=== PATIENT | male | born 1955 | race Caucasian/White ===

== ENCOUNTER → 2021-03-15 14:53 | Outpatient (CLI) | payer MEDICARE, SELFPAY ==
--- NOTE | 2021-03-15 | PET_ITS ---
EXAMINATION: FDG PET-CT INDICATIONS: A 66-year-old male with reported history of colorectal carcinoma presenting for initial staging examination. COMPARISON EXAMINATION: CT of the chest report dated 11/24/20 TECHNIQUE: Following the intravenous administration of 13.075 mCi of F-18 deoxyglucose via the left antecubital fossa, multiplanar image acquisitions of the neck, chest, abdomen and pelvis to level of mid thigh, obtained at one hour post radiopharmaceutical administration contemporaneously interpreted with the current CT of the neck, chest, abdomen and pelvis, to level of mid thigh, dated 03/15/[address] of the chest report dated 11/24/20 reveals: BLOOD GLUCOSE LEVEL:?? 93 mg/dl?HEIGHT:?69 inches?WEIGHT: 194 lbs. FINDINGS: 1. There is no quantitative scintigraphic evidence of abnormal increased glucose metabolism on meticulous inspection of whole body acquisitions to include all three axis reconstructions. 2. Normal physiologic distribution of the radiopharmaceutical is apparent in the hepatic and splenic parenchyma, both renal units, bladder and visualized intestinal tract. The visualized portion of the cerebral cortex, as well as cerebellar hemispheres demonstrate symmetric and preserved glucose metabolism. Diffuse radiopharmaceutical concentration is noted in all four quadrants of the abdomen and pelvis. Prominent radiopharmaceutical concentration is observed in the left ventricular myocardium commensurate with the [place]. Pertinent CT findings are as follows: CHEST: There is atherosclerotic calcification defined in the thoracic aorta without evidence of dilatation-aneurysm formation. Coronary arterial calcification is observed. A hiatal hernia is defined. Right and left axillary soft tissue densities with fatty hilus are non-glucose avid. Mediastinal soft tissue reveals no evidence of increased tracer uptake. There are no parenchymal densities-nodules defined in the right and left hemithorax with discernible increased quantitatively significant enhanced FDG uptake. ABDOMEN AND PELVIS: Postsurgical change is defined in the right anterior-paramedian abdominal mesentery without evidence of quantitatively significant increased FDG uptake. There is atherosclerotic calcification defined in the abdominal aorta without evidence of dilatation-aneurysm formation. Abdominal-pelvic arterial calcification is demonstrated. Calcification is manifest within the left kidney. Right and left inguinal soft tissue densities are non-glucose avid. SKELETAL: Degenerative changes are noted in the cervical, thoracic and lumbar spine without evidence of increased radiopharmaceutical concentration. PET/PET/CT Tumor Base -Thigh Init IMPRESSION: 1. NEGATIVE EXAMINATION. There is no definitive quantitative scintigraphic evidence of residual-metastatic/viable neoplasm. Electronic Signature Oswald Yost D.O. Accurate Quantification of SUVs for this report are calculated using the exclusive [employer], ([place].S. Patent No. 10, [id number] 983). Standardization and correction of the FDG SUV metric exclusively available with [employer] intellectual property, allow for vendor non-specific objective quantitative sequential FDG PET-CT comparison and otherwise unobtainable optimization of the sensitivity and specificity of the examination. Electronically Signed: Oswald Yost DO at 17:22 EDT Tel , Service support ,
== END ==
PROVIDERS: PCP Family Medicine; Referring Provider Internal Medicine Hematology & Oncology; Visit Provider Internal Medicine Hematology & Oncology
DX: C18.2 Malignant neoplasm of ascending colon (principal)
CPT/HCPCS: 78815; A9552

== ENCOUNTER → 2023-05-25 | Outpatient (CLI) | payer MEDICARE, SELFPAY ==
--- NOTE | 2023-05-25 | FLU_PTH ---
PATIENT: FARIHA PARIS LOC: [facility] U#:[id number] AGE/SX: 68/M ROOM: RE05/25/[address]: Dr. Devonte Graham MD : 1955 BED: DIS: 05/25/2023 SPEC #: [id number] RECD: 05/28/23 07:08 STATUS: BJ REQ #: [id number] SHANI: 05/25/23 00:[address]: Hanna Graham DEPT: CYTOLOGY RECD BY: Luz Mancini ENTERED: 05/28/23 07:08 SP TYPE: Fluid OTHR DR: Dr. Geovanni Bloom MD Tissues: A - Thyroid gland, NOS B - Thyroid gland, NOS Procedures: Special Stain Group II Surgery Specimen Level IV Cytospin Fluid Comments: @ Ordering doctor for SSII edited from to @ by YUE at 05/28/23 1016 @ Ordering doctor for SUIV edited from to DR.LWANG Galeas by YUE at 05/28/23 1016 @ Ordering doctor for CYSPIN edited from to DR.LWANG Galeas by YUE at 05/28/23 1016 @ Submitting doctor edited from to DR.LWANG Galeas by YUE at 05/28/23 1016 HEADER OPERATION: Fine needle aspiration left lower thyroid PRE-OP DIAGNOSIS: Abnormal thyroid ultrasound TISSUE SUBMITTED: A - Left lower thyroid fluid, B - Left lower thyroid x6 slides DIAGNOSIS CYTOLOGY A. Fine needle aspiration, left lower thyroid nodule (cytospin and cell block): Macrophages consistent with benign cyst contents. B. Fine needle aspiration, left lower thyroid nodule (smears): Rare follicular cells and macrophages. See comment. AM:angel luis 05/29/2023 COMMENT B. A benign follicular nodule is suspected, however, paucity of follicular cells precludes further evaluation. Clinical correlation is suggested. CYTOLOGY STUDY Slides are reviewed. CYTOLOGY GROSS A - Received is 30 ml of reddish cloudy fluid labeled with the patient's name and and designated per the requisition as left lower thyroid. Submitted for cytology preparation including cell block. B - Received are six smears labeled with the patient's name and designated per the requisition as left lower thyroid. Submitted for staining. / angel luis 05/28/2023 TC:5 CPT: 30527 x2, 40974
== END | disposition home or self-care (01) ==
LOC: LABSPEC 16:54
PROVIDERS: PCP Family Medicine; Visit Provider Radiology Radiation Oncology
DX: E04.1 Nontoxic single thyroid nodule (principal)
CPT/HCPCS: 88108; 88305; 88313

== ENCOUNTER → 2023-06-07 | Outpatient (CLI) | payer MEDICARE, SELFPAY ==
--- NOTE | 2023-06-07 13:46 | MRI_ITS ---
EXAMINATION: MR Pelvis Male WO/W Contrast COMPARISON: None CLINICAL HISTORY: 68-year-old man with elevated PSA level Most recent PSA = 6.7 ng/ml; PSA date = 04/30/2023 TECHNIQUE: Standard prostate MR protocol was used before and after administration of 17 cc of IV Clariscan. FINDINGS: Prostate volume: 60 cc PSA density: 0.11 ng/ml2 Length of membranous urethra: 13 mm Post-biopsy hemorrhage: None Multiparametric MR evaluation: Heterogeneous appearance of the central gland is consistent with benign prostatic hyperplasia. Lesion 1: LOCATION - 1 x 0.8 x 1.5 cm moderately T2 hypointense round focal lesion in the right posterior/posterolateral peripheral zone at mid gland. It is very bright on DWI and very dark on ADC map. T2 - 5 DWI - 5 DCE - positive Overall PI-RADS v2 score = 5 Lesion 2: LOCATION - 1.8 x 1.6 x 1.6 cm ill-defined T2 hypointense lesion in the left posterior transitional zone at mid gland. It is mild to moderately bright on DWI and moderately dark on ADC map. T2 - 3 DWI - 3 DCE - inconclusive Overall PI-RADS v2 score = 3 Capsular margin and neurovascular bundle: There is 3 mm of extracapsular extension by lesion 1 posterior laterally to the right. Seminal vesicles: Not involved. Lymph nodes: No lymphadenopathy in the field of view. Bones: No suspicious lesions in the field of view. MRI/Pelvis W/WO Contrast IMPRESSION: 1.5 cm PI-RADS 5 lesion in the right posterolateral PZ at mid gland with 3 mm extracapsular extension posterolaterally to the right. - No evidence of seminal vesicle invasion. - No lymphadenopathy. - No suspicious bone lesions. 1.8 cm PI-RADS 3 lesion in the left posterior TZ at mid gland. - No extracapsular extension - No evidence of seminal vesicle invasion. Benign prostatic hyperplasia. Electronically Signed: Brain Centeno MD at 20:41 EST ,
== END | disposition home or self-care (01) ==
LOC: MRI 13:05
PROVIDERS: PCP Nurse Practitioner Family; Referring Provider Urology; Visit Provider Urology
DX: R97.20 Elevated prostate specific antigen [PSA] (principal)
CPT/HCPCS: 72197; A9575

== ENCOUNTER → 2023-07-30 | Outpatient (CLI) | payer MEDICARE, SELFPAY ==
--- NOTE | 2023-07-30 | IMM_PTH ---
PATHOLOGY RESULTS PATIENT: FARIHA PARIS LOC: [facility] U#:[id number] AGE/SX: 68/M ROOM: RE07/30/[address]: Dr. Haja Huber MD : 1955 BED: DIS: 07/30/2023 SPEC #: [id number] RECD: 08/01/23 14:42 STATUS: BJ REQ #: [id number] SHANI: 07/30/23 00:[address]: Haja Huber DEPT: IMMUNOHISTOCHEMISTRY RECD BY: Marj Pearl ENTERED: 08/01/23 14:43 SP TYPE: IMMUNO OTHR DR: Nakia Argueta, [employer]-C Tissues: PROSTATE RIGHT PROSTATE RIGHT PROSTATE LEFT PROSTATE LEFT PROSTATE LEFT Procedures: 34BE12 (add) P40 (add) 34BE12 (initial) PHYSICIAN & INSTITUTION [place] [id number] SPECIMEN INFORMATION: Tissue Source: A - Right apex, B - Right mid, D - Left apex, E - Left mid, F - Left base Clinical Info: Elevated PSA Specimen Number: [id number] A, B, D-F CPT code: 46559, 71666 x9 METHODOLOGY: Deparaffinized sections of prefer/formalin-fixed tissue or PAP/DQ stained slides are incubated with monoclonal/polyclonal antibodies/oligonucleotide probes. Localization is made via biotin free immunoperoxidase method. Appropriate controls are performed and reacted as expected. Results on target cell population are indicated in the following table: RESULTS: ANTIBODY / CLONE RESULT Block A P40 (BC28) negative 34BE12 (34BE12) negative Block B P40 (BC28) negative 34BE12 (34BE12) negative Block D P40 (BC28) negative 34BE12 (34BE12) negative Block E P40 (BC28) negative 34BE12 (34BE12) negative Block F P40 (BC28) negative 34BE12 (34BE12) negative These tests were developed and their performance characteristics determined by [facility]. They may not have been cleared or approved by the U.S. Food and Drug Administration. The FDA has determined that such clearance or approval is not necessary. The above immunohistochemical/dualISH markers are ordered and reviewed by the Pathologist. INTERPRETATION: A. Right prostate, apex, core biopsy: Atypical small acinar proliferation (RAJ). B. Right prostate, mid, core biopsy: Adenocarcinoma. D. Left prostate, apex, core biopsy: Atypical small acinar proliferation (RAJ). E. Left prostate, mid, core biopsy: Adenocarcinoma. F. Left prostate, base, core biopsy: Adenocarcinoma. SJ:angel luis 08/02/2023
--- NOTE | 2023-07-30 08:00 | PROSBIL_PTH ---
PATHOLOGY RESULTS PATIENT: FARIHA PARIS LOC: [facility] U#:[id number] AGE/SX: 68/M ROOM: RE07/30/[address]: Dr. Haja Huber MD : 1955 BED: DIS: 07/30/2023 SPEC #: [id number] RECD: 07/31/23 11:38 STATUS: BJ REPrashant #: [id number] SHANI: 07/30/23 08:[address]: Haja Huber DEPT: SURGICAL PATHOLOGY RECD BY: Diandra Novoa ENTERED: 07/31/23 11:38 SP TYPE: PROST BX LE DR: Nakia Argueta, TELLY Tissues: PROSTATE RIGHT PROSTATE RIGHT PROSTATE RIGHT PROSTATE LEFT PROSTATE LEFT PROSTATE LEFT Procedures: PROSTATE BX HEADER OPERATION: Prostate biopsy PRE-OP DIAGNOSIS: Elevated PSA TISSUE SUBMITTED: A - Right apex, B - Right mid, C - Right base, D - Left apex, E - Left mid, F - Left base MICROSCOPIC DIAGNOSIS A. Right prostate, apex, core biopsy: Focal atypical small acinar proliferation (RAJ). Focal mild chronic inflammation. See comment. B. Right prostate, mid, core biopsy: Prostatic adenocarcinoma. Sonya grade: 3+3=6 Number of cores involved: 1/2 Proportion of tissue involved: ~5% Perineural invasion: Present. Greatest tumor length: 0.2 cm See comment. C. Right prostate, base, core biopsy: Prostatic adenocarcinoma. [place] grade: 3+4=7 Number of cores involved: 2/2 Proportion of tissue involved: >95% Perineural invasion: Present. Greatest tumor length: 1.2 cm D. Left prostate, apex, core biopsy: Focal atypical small acinar proliferation (RAJ). Focal mild chronic inflammation. See comment. E. Left prostate, mid, core biopsy: Prostatic adenocarcinoma. Sonya grade: 3+3=6 Number of cores involved: 1/2 Proportion of tissue involved: ~20% Perineural invasion: Not identified. Greatest tumor length: 0.5 cm Focal high-grade prostatic intraepithelial neoplasia (HGPIN). See comment. F. Left prostate, base, core biopsy: Prostatic adenocarcinoma. Sonya grade: 3+3=6 Number of cores involved: 1/2 Proportion of tissue involved: ~10% Perineural invasion: Not identified. Greatest tumor length: 0.7 cm, discontinuous See comment. SJ:angel luis 08/01/2023 COMMENT A, B, D-F - Immunohistochemistry ([id number]) supports the above diagnosis. Case has been reviewed in consultation with Dr. Can who concurs with the above diagnosis. IDC:AM MICROSCOPIC DESCRIPTION Slides are reviewed. GROSS DESCRIPTION A - Received is one container designated prostate, right apex. The specimen consists of two elongated fragments of light rob[place]o-white soft tissue each measuring 1.0 cm in length and 0.1 cm in diameter. The specimen is totally submitted in one cassette. B - Received is one container designated prostate, right mid. The specimen consists of two elongated fragments of light rob[place]-white soft tissue each measuring 1.2 cm in length and 0.1 cm in diameter. The specimen is totally submitted in one cassette. C - Received is one container designated prostate, right base. The specimen consists of two elongated fragments of light rob[place]o-white soft tissue each measuring 1.2 cm in length and 0.1 cm in diameter. The specimen is totally submitted in one cassette. D - Received is one container designated prostate, left apex. The specimen consists of two elongated fragments of light rob[place]o-white soft tissue measuring 0.6 and 1.5 cm in length and 0.1 cm in diameter. The specimen is totally submitted in one cassette. E - Received is one container designated prostate, left mid. The specimen consists of two elongated fragments of light rob[place]o-white soft tissue measuring 1.5 and 1.9 cm in length and 0.1 cm in diameter. The specimen is totally submitted in one cassette. F - Received is one container designated prostate, left base. The specimen consists of two elongated fragments of light rob[place]o-white soft tissue each measuring 1.7 cm in length and 0.1 cm in diameter. The specimen is totally submitted in one cassette. / MARLA:rg 07/31/2023 TC:0 CPT: G0146
--- OUTSIDE RECORDS SUMMARY | 2023-07-30 17:24 | XMS RPT_ITS | CCD ---
Author Name Unknown Address [id number] [place] [address] Organization [facility] Care Team Providers Care Piano Assembler Name Role Phone Jovanny Terry Primary Care Provider MARA LINN, DAMIEN ARIAS Primary Care Physician [phone] Jovanny Terry MD Primary Care Provider Jovanny Terry MD Primary Care Provider MISTI BERMAN MD Admitting UnavailMISTI Briceno MD Primary Care UnavailMISTI Briceno MD Attending UnavailCOURTNEY Marx SKEIN INSPECTOR Consulting Unavailable PROVIDER, UNKNOWN Consulting Unavailable PROVIDER, UNKNOWN Consulting Unavailable COURTNEY TERRY NP Consulting Unavailable JOSE GREGORY SKEIN INSPECTOR-C Admitting Unavailable JOSE GREGORY SKEIN INSPECTOR-C Primary Care Unavailable JOSE GREGORY SKEIN INSPECTORAdán Attending Unavailable PROVIDER, UNKNOWN Consulting Unavailable PROVIDER, UNKNOWN Consulting Unavailable SAMMI MANCIA MD Admitting Unavailable SAMMI MANCIA MD Primary Care Unavailable SAMMI MANCIA MD Attending Unavailable DAMIEN TERRY MD Consulting Unavailable DAMIEN TERRY MD Referring Unavailable PROVIDER, UNKNOWN Consulting Unavailable PROVIDER, UNKNOWN Consulting Unavailable PROVIDER, UNKNOWN Consulting Unavailable MUSTAPHA ENRIQUEZ Attending Unavailable DAMIEN TERRY MD Consulting Unavailable DAMIEN TERRY MD Referring Unavailable MUSTAPHA ENRIQUEZ Admitting Unavailable MUSTAPHA ENRIQUEZ Primary Care Unavailable PROVIDER, UNKNOWN Consulting Unavailable PROVIDER, UNKNOWN Consulting Unavailable PROVIDER, UNKNOWN Consulting Unavailable ALBERTO TERRY Admitting Unavailable ALBERTO TERRY Primary Care Unavailable ALBERTO TERRY Attending Unavailable DAMIEN TERRY MD Consulting Unavailable PROVIDER, UNKNOWN Consulting Unavailable PROVIDER, UNKNOWN Consulting Unavailable PROVIDER, UNKNOWN Consulting Unavailable Alberto Terry Unavailable Haja Huber MD Unavailable Misti Berman Unavailable Nacho Palmer Unavailable Alberto Terry Unavailable Haja Huber MD Unavailable Misti Berman MD Unavailable Nacho Palmer MD Unavailable Haresh PARADA, Nakia [facility] Primary Care Pr ovider MARA, JOVANNY QUEZADA Primary Care Unavailable MASCI, SRINATH Hinton Attending Unavailable MASCI, SRINATH A Referring Unavailable TERRY, [facility] Primary Care Unavailable MASCI, SRINATH A Referring Unavailable TERRY, [facility] Primary Care Unavailable MASCI, SRINATH A Referring Unavailable MASCI, SRINATH A Referring Unavailable TERRY, [facility] Primary Care Unavailable MASCI, SRINATH A Referring Unavailable TERRY, [facility] Primary Care Unavailable MASCI, SRINATH A Referring Unavailable TERRY, [facility] Primary Care Unavailable MASCI, SRINATH Hinton Attending Unavailable KIM POND Referring Unavailable TERRY, [facility] Primary Care Unavailable MASCI, SRINATH A Referring Unavailable TERRY, [facility] Primary Care Unavailable TERRY, [facility] Primary Care Unavailable LULAMY FARMERALI Attending Unavailable TERRY, [facility] Primary Care Unavailable LULAMY FARMERALI Referring Unavailable [facility] Care Berenice vailable HANNA GRAHAM Attending Unavailable STACEYTETTLARISSA [facility] Care Berenice vailable HANNA GRAHAM Attending Unavailable MASCI, SRINATH A Referring Unavailable KENNETHTETTER [facility] Care Berenice vailable HANNA GRAHAM Attending Unavailable STACEYFSTETTER EXTRUSION MANAGER-COMMERCIAL LENDING ASSISTANT, [facility] Care Physic faheem MARA [employer] GE[employer]-BC, COURTNEY R Unavailable HEARINC, . Unavailable NEUROLOGY, GENERAL Unavailable Unavailable Haja Huber Unavailable Unavailable PHYSICAL THERAPY, CONSULT Unavailable Unavazaida RENE MD, LESLI Fonseca Unavailable CONSTANZA HARDING Unavailable ROSALIA MALDONADO Unavailable Unavailable ALBERTO TERRY MD Unavailable FADY LINN, MARIO Hatch Unavailable JUDITH LINN, Reji VALDES Unavailable MARA LINN, Mona QUEZADA Unavailable Yaneth FUCHS, Zulma Unavailable Unavailable Deandra Jansen Unavailable Unavailable Angelica RN, Adri Unavailable Unavailmoses Mena RN, Venessa Unavailable Unavailable JACQUE TERRY Unavailable Unavailable LOCO RN, KAITLIN Unavailable Unavailable VICTORINO PERRY Unavailable Unavailable Mary Terry Unavailable Unavailable HARESH GOODMANP-C, NAKIA Bond Unavailable SALLY CORREA Unavailable Unavailable [place] Courtney LEVY Unavailable Unavailable Unavailable Unavailable BRI BLANCHARD-COMMERCIAL LENDING ASSISTANT, JOSE Attending Unavail able MARA LINN, Mona [facility] Primary Care Unavailable HARESH LOYD, NAKIA Attending Berenice mehran TERRY MD, [facility] Primary Care Unavailable CASSY LINN, BASHIR Hinton Attending Unavailable MARA LINN, [facility] Primary Care Unavailable ANUPAM LINN, ROSALIA Consulting Unavailable CASSY LINN, BASHIR Hinton Admitting Unavailable ANJU LINN, DR BALLESTEROS Attending Unavailchele HUTSON APRN-TAL, NAKIA Primary Care Berenice mehran GOODMANP-BC, COURTNEY Mendoza Attending Unavailchele e MARA [facility], COURTNEY Mendoza Primary Care Unavailabl e MARA GRINDER GEAR-, COURTNEY Mendoza Attending Unavailabl e MARA GR[employer]ER GEAR-BC, COURTNEY Mendoza Primary Care Unavailabl e Medications Current Medications Medication Drug Class(es) Dates Sig (Normalized) Sig (Original) aspirin 81 mg delayed release oral tablet (19 sources) Platelet Aggregation Inhibitor, Nonsteroidal Anti-inflammatory Drug Start: 12-23-2021 aspirin 81 mg oral delayed release tablet Dose : 81 mg = 1 tab(s), Oral, qAM, 0 Refill(s) Start Date: 12/23/21 Status: Ordered Completed/Discontinued Medications Medication Drug Class(es) Dates Sig (Normalized) Sig (Original) acetaminophen 500 mg / HYDROcodone bitartrate 5 mg oral tablet (5 sources) Opioid Agonist Start: 10-31-2011 End: 11-07-2011 take 1 tablet by mouth every six hours as needed VICODIN, 5-500MG (Oral Tablet) ; 1 (one) Tablet every six hours, as needed for 7 days Quantity: 28 {Tablet} Refills: 0 Ordered: 11-Nov-2011 MD Mona TERRY Start: 31-Oct-2011 End: 07-Nov-2011 Status: Inactive Comments: Medication taken as needed. Problems Active Problems Problem Classification Problem Date Documented Da te Episodic/Chronic Abdominal pain (20 sources) Right upper quadrant pain; Translations: [Right upper quadrant pain] 10-13-2020 Episodic Acute cerebrovascular disease (20 sources) Cerebral infarction, unspecified; Translations: [Cerebrovascular accident] Onset: 11-21-2021 12-26-2021 Chronic Past or Other Problems Problem Classification Problem Date Documented Date Episodic/Chronic Acute cerebrovascular disease (5 sources) Acute cerebrovascular disease 12-07-2021 Coronary atherosclerosis and other heart disease (5 sources) Coronary atherosclerosis and other heart disease 09-06-2022 Headache; including migraine (20 sources) Headache; including migraine 07-11-2023 Lymphadenitis (20 sources) Mediastinal lymphadenopathy; Translations: [Localized enlarged lymph nodes] Onset: 02-14-2021 02-25-2021 Episodic Other lower respiratory disease (20 sources) Multiple nodules of lung; Translations: [Other nonspecific abnormal finding of lung field] Onset: 02-14-2021 02-14-2021 Episodic Other lower respiratory disease (1 source) Other nonspecific abnormal finding of lung field; Translations: [Lung nodules] Onset: 02-14-2021 Episodic Residual codes; unclassified (20 sources) Tobacco user; Translations: [Tobacco use] Onset: 02-14-2021 02-14-2021 Episodic Unclassified (5 sources) [ADDITIONAL REASON] Knee pain - The knee pain involves the left knee. The knee pain is described as being located in the medial knee. Note for Knee pain : Has seen Dr. Carlos Terry in the past. Had cortisone and gel injections didn't help any. Constant pain, sore 07-11-2023 Unclassified (5 sources) [ADDITIONAL REASON] Prostate Biopsy - Will be done 07/30/2023 07-11-2023 Unclassified (5 sources) !Patient notification of lab results - Courtney Terry [facility]. The test(s) that you had done were/was a Borrelia burgdorferi antibody. Note for !Patient notification of lab results : Your test was negative for past or present infection of Lyme Disease. Let us know if you have any questions. 01-18-2023 Unclassified (5 sources) Fatigue - Symptoms include fatigue, impaired memory, impaired concentration (brain fog) and myalgias (thought it was from medication for cholesterol but still had it. All joints and muscles), while symptoms do not include poor sleep. Onset was 1 year(s) ago. Associated symptoms do not include headache, fever, sore throat, cough, irregular heartbeat, nausea or vomiting. Note for Fatigue : Patient still thinks it's associated with all the meds he's on 01-16-2023 Unclassified (5 sources) !Patient notification of lab results - Courtney Terry GR[employer]ER GEAR-BC. The test(s) that you had done were/was an A1C (three month sugar average). The results of your testing were stable for your medical condition . Note for !Patient notification of lab results : Your blood sugars are not in the diabetes range, so keep up the good work. Eating a diet that is high in fruits and vegetables and low added sugar is recommended, along with getting at least 30 minutes of exercise at least 5 days a week. Let us know if you have any questions. 01-04-2023 Unclassified (5 sources) Foot Problem - Note for Foot problem : Pt. reports right foot, base of toes lightly discolored blue/purple, foot with mild redness. Warm to touch, slight tenderness to touch. No known injury. Pt. did state noted some tingling in this foot approx 1 month ago. 01-22-2023 Unclassified (5 sources) !Patient notification of lab results - Courtney Terry GR[employer]ER GEAR-BC. Note for !Patient notification of lab results : Omega Mckeon, We got your lab results back and overall they looked pretty good! Your cholesterol is slightly higher now than it was the last time we checked, so as we discussed, you may want to consider restarting that cholesterol medication. We did check a myoglobin level, which was normal, which typically would be high if it really was the statin medication causing your pain. Your one liver enzyme (Alk Phos) is high, and has been the last several times we checked, so I would like for you to come in and have one more lab drawn to make sure it is nothing worrisome. Also, we have been following your PSA (prostate specific antigen) the past few years as well, and it is up some from last check (6.52 from 4.25). Typically it is recommended to see a urologist for evaluation at this point, so let us know if you'd like to get that started. Let us know if you have any questions. 09-07-2022 Unclassified (1 source) [ADDITIONAL REASON] HYPERTENSION - There has been no associated chest pain or dyspnea. Note for HYPERTENSION : C/O tinnitus, concerned that may be d/t chronically elevated BP. Systolic usually 150's at home. 09-06-2022 Unclassified (5 sources) !Patient notification of lab results - Dr. Terry. Note for !Patient notification of lab results : Mike, your labs looked good. Your cholesterol was super. Your PSA was slightly elevated again, but not as high as it was several years ago. I am confident that it is not due to a cancer. Even so, we should recheck it in about 6 months to make sure it isn't going higher.We will send a copy of your labs to Dr. Cohn.Let us know if you have any questions. 06-01-2022 Unclassified (4 sources) LAB DRAW - Note for LAB DRAW : Pt would like cholesterol checked. 05-31-2022 Unclassified (4 sources) [ADDITIONAL REASON] adenocarinoma of cecum - Pt would like to discuss this and would like a refill of protonix. Medication is helping immensely. 05-31-2022 Unclassified (2 sources) Smoking Cessation - Note for Smoking cessation : Tried to stop smoking cold turkey. Lasted for 2 days. Now a pack lasts 2-3 days rather than just 1 day. Pt concerned w/ GI side effects of nicotine. 01-18-2022 Unclassified (2 sources) [ADDITIONAL REASON] HYPERTENSION - Note for HYPERTENSION : Amlodipine stopped when pt had CVA 10/202101-18-2022 Unclassified (5 sources) Pre-Op Visit - The procedure scheduled is a Right Hemicolectomy on 12/02/2020. The surgeon for the procedure will be Dr. Alberto Terry. Note for Pre-op visit : See form 11-25-2020 Unclassified (5 sources) !Patient notification of lab results - Dr. Terry. Note for !Patient notification of lab results : Mike, your labs looked good. 1. Your white blood cell count was still a little elevated, but improved since when you were sick. So since it is improving, it is likely not anything bad going on - maybe from your stomach issues, maybe from your skin graft, etc. Even so, we will recheck it in 6 months to make sure all is well.2. Your thyroid was a bit off in the past, now back to normal. It is not unusual for that to fluctuate, so no worries.3. Your PSA has continued to drop, now completely normal. PSAs continue to increase if you have prostate cancer so, again, no worries there. At this point I would recommend we just go back to routine yearly screening like we do for everyone else.4. You did have very mild anemia, which is new for you. The first thing we check for on that is to make sure you don't have a polyp or anything else in your colon that could be causing blood loss. You are in already in process for getting that done, so let's just stick with that plan.So lots of stuff going on, but overall things look good.Let us know if you have any questions. 10-14-2020 Unclassified (5 sources) Abdominal pain - The abdominal pain has been occurring in an intermittent pattern for 2 months. The abdominal pain is described as sharp pain. The abdominal pain is described as being located in the right upper quadrant. The symptoms are aggravated by meals (1/2 to 1 hour after eating). The symptoms have been associated with abdominal distention and nausea. 09-20-2020 Unclassified (1 source) Immunization - Immunizations discussed with patient/ parent: yes (Advised to contact pharmacy to see if Shingrix immunization available and to get immunization.). 04-14-2020 Unclassified (1 source) [ADDITIONAL REASON] HYPERTENSION - There has been no associated chest pain, dyspnea or edema. Note for HYPERTENSION : started amlodipine 1 mo ago. Feels well, is sleeping better. 04-14-2020 Unclassified (1 source) Laboratory Test Results, Follow up - Note for Discuss procedure results : Had Screening Lab tests done at 's work place. Would like to discuss results 03-12-2020 Unclassified (1 source) [ADDITIONAL REASON] Blood pressure check - Note for Blood pressure check-up : No headaches, dizzy spells, swelling of ankles, chest pain or shortness of breath. Does not exercise 03-12-2020 Unclassified (1 source) Laboratory Test Results, Follow up - Note for Discuss procedure results : Here to talk about results 09-05-2019 Unclassified (1 source) [ADDITIONAL REASON] Blood pressure check - Note for Blood pressure check-up : No headaches, dizzy spells, swelling of ankles, chest pain or shortness of breath. Blood Pressure has been up at home. His machine BP 169/96 09-05-2019 Unclassified (5 sources) !Patient notification of lab results - Dr. Terry. Note for !Patient notification of lab results : Mike, overall your labs looked good. Your kidney function and sugar tests were normal. Your cholesterol was OK. Your triglycerides are marked as high, but that is not accurate if you are not fasting. So no worries there.Your PSA (prostate check) was very slightly elevated. Like we discussed, that is not a very accurate test. So before we get excited at all about that, I would recommend that we recheck it in 6 months to see if it is going up or not. Let us know if you have any questions. 08-02-2019 Unclassified (5 sources) Physical examination - The patient is here for a annual physical. Note for Physical examination : retired from [employer] . 08-01-2019 Unclassified (5 sources) Influenza, Adult - Symptoms include chills, headache and cough, while symptoms do not include fever or sore throat. Onset was 1 week(s) ago. Associated symptoms include dizziness, lightheadedness, nausea and vomiting, while associated symptoms do not include chest pain. Note for Influenza : Pt states last week had severe muscle aches. 04-10-2017 Unclassified (5 sources) Rash - The rash has been occurring for months (had all winter). There has been associated itching. Note for Rash : Has had before, would like to have meds. 02-03-2015 Unclassified (5 sources) !Patient notification of lab results . The test(s) that you had done were/was a Free T4, a CBC (checks for anemia and infection) and a CMP (kidneys, liver, nutrition, sugar). Your tests showed the following abnormalities: elevated cholesterol . Please adjust your therapy by a cholesterol medication called atorvastatin 20 mgm daily, realize that we have sent the new prescription(s) to your preferred pharmacy and review the enclosed special instruction sheet(s) on non HDL cholesterol (your non HDL cholesterol is high at 192). You should call our office to schedule an appointment for repeat lab after being on your new dose 4 weeks (cholesterol). Please note that we have included copies of your results and follow up as scheduled. 06-16-2013 Unclassified (1 source) Rash - The rash was first seen on the scalp. Note for Rash : Had been given lotrisone in the past and would like another rx. 06-13-2013 Unclassified (1 source) [ADDITIONAL REASON] Ear blocked - Note for Blocked ear : c/o not hearing well. 06-13-2013 Unclassified (5 sources) HYPERTENSION - Note for HYPERTENSION : review lab work. Sciatica of right leg improved. 02-13-2012 Unclassified (5 sources) Routine Check - Patient is here to review the medical problem(s) of other: ____ (elevated BP, sciatica). The patient is feels well with no complaints. Note for Routine Check : . 12-14-2011 Unclassified (5 sources) Leg pain - The onset of the pain has been acute and has been occurring in an intermittent (worse with walking.) pattern for 2 weeks. The pain involves the right leg. The pain is described as being located in the down the entire leg. Note for Leg pain : . 10-31-2011 Unclassified (5 sources) Rash - The onset of the rash has been gradual and has been occurring in a persistent pattern for 2 months. The rash is characterized as flat. The rash was first seen on the upper extremity (Hands). It spread to the scalp and the trunk. 06-03-2010 Unclassified (4 sources) HYPERTENSION - There has been no associated chest pain or dyspnea. Note for HYPERTENSION : C/O tinnitus, concerned that may be d/t chronically elevated BP. Systolic usually 150's at home. 09-06-2022 Unclassified (3 sources) HYPERTENSION - Note for HYPERTENSION : Amlodipine stopped when pt had CVA 10/202101-18-2022 Unclassified (3 sources) [ADDITIONAL REASON] Smoking Cessation - Note for Smoking cessation : Tried to stop smoking cold turkey. Lasted for 2 days. Now a pack lasts 2-3 days rather than just 1 day. Pt concerned w/ GI side effects of nicotine. 01-18-2022 Unclassified (4 sources) HYPERTENSION - There has been no associated chest pain, dyspnea or edema. Note for HYPERTENSION : started amlodipine 1 mo ago. Feels well, is sleeping better. 04-14-2020 Unclassified (4 sources) [ADDITIONAL REASON] Immunization - Immunizations discussed with patient/ parent: yes (Advised to contact pharmacy to see if Shingrix immunization available and to get immunization.). 04-14-2020 Unclassified (4 sources) Blood pressure check - Note for Blood pressure check-up : No headaches, dizzy spells, swelling of ankles, chest pain or shortness of breath. Does not exercise 03-12-2020 Unclassified (4 sources) [ADDITIONAL REASON] Laboratory Test Results, Follow up - Note for Discuss procedure results : Had Screening Lab tests done at 's work place. Would like to discuss results 03-12-2020 Unclassified (4 sources) Blood pressure check - Note for Blood pressure check-up : No headaches, dizzy spells, swelling of ankles, chest pain or shortness of breath. Blood Pressure has been up at home. His machine BP 169/96 09-05-2019 Unclassified (4 sources) [ADDITIONAL REASON] Laboratory Test Results, Follow up - Note for Discuss procedure results : Here to talk about results 09-05-2019 Unclassified (4 sources) Ear blocked - Note for Blocked ear : c/o not hearing well. 06-13-2013 Unclassified (4 sources) [ADDITIONAL REASON] Rash - The rash was first seen on the scalp. Note for Rash : Had been given lotrisone in the past and would like another rx. 06-13-2013 Unclassified (1 source) adenocarinoma of cecum - Pt would like to discuss this and would like a refill of protonix. Medication is helping immensely. 05-31-2022 Unclassified (1 source) [ADDITIONAL REASON] LAB DRAW - Note for LAB DRAW : Pt would like cholesterol checked. 05-31-2022 Results Test Name Value Interpretation Reference Range Facil ity Vital Signs Date Time Vital Sign Value Performing Clinician Ashia rowe 07-11-2023 09:11-0500 Body height 175.[address] [facility] 07-11-2023 09:0500 Body mass index (BMI) [Ratio] 30.77 kg/m2 [facility] 07-11-2023 09:11050 Body surface area Derived from formula 2.1 m2 [facility] 07-11-2023 09:050 Body weight 94.52 kg [facility] [employer] [facility] 07-11-2023 09:050 Diastolic blood pressure 72 mm[Hg] [facility] Encounters Encounter Date Encounter Type Care Provider Facility Start: 07-11-2023 End: 07-11-2023 Office outpatient visit 15 minutes COURTNEY GOODMANP-BC [facility] Start: 07-11-2023 Review COURTNEY TERRY FN -BC [facility] Start: 07-09-2023 End: 07-09-[address] LESLI RENE MD Facility:[facility] Start: 07-09-2023 End: 07-09-[address] LESLI RENE MD [facility] Start: 06-01-2023 End: 06-01-2023 ambulatory NAKIA HUTSON Facility:[facility] Start: 06-01-2023 End: 06-01-2023 Patient encounter procedure Hanna Graham MD Work Phone: General Surgery Procedures Date Procedure Procedure Detail Performing Clinician Start: 07-11-2023 End: 07-11-2023 Dischrg meds reconciled w/current med list NAKIA FINE-C Work Phone: Start: 07-09-2023 End: 07-09-2023 Colonoscopy NAKIA HUTSON [employer]-C Work Phone: Plan of Treatment Date Care Activity Detail Author Start: 08-01-2029 Urine microalbumin profile [facility] Start: 05-11-2026 Diabetes Screening Diabetes Screenin [facility] Start: 11-17-2025 Diabetes Screening Diabetes Screenin [facility] Start: 04-06-2025 DIABETES SCREEN DIABETES SCREEN [facility] Start: 10-05-2024 DIABETES SCREEN DIABETES SCREEN [facility] Start: 06-20-2024 DIABETES SCREEN DIABETES SCREEN [facility] Start: 06-02-2024 End: 07-01-2024 Us soft tissue head & neck real time imge docm US THYROID/PARATHYROID Radiology Routine Thyroid nodule Expected: 06/02/2024, Expires: 07/01/2024 [facility] Work Phone: Immunizations Immunization Date Immunization Notes Care Provider [facility] 02-15-2022 pneumococcal Conjuga te, unspecified formulation COURTNEY TERRY [facility] Work Phone: [facility]; [facility] 02-15-2022 pneumococcal polysaccharide vaccine, [address] LESLI RENE MD [facility] Payers Date Payer Category Payer Medicare [id number] 2021 Medicare [id number] 2021 Unknown [employer]IM[employer] HMO POS [id number] 2021-Present [phone] [address] [place] [address] O [id number] 2021 Unknown [id number] [id number] 1955 Unknown [id number] 1956 Unknown [id number] 1956 Unknown [id number] 1956 Unknown [id number] 1956 Unknown [id number] [id number] 1956 Unknown [id number] [id number] 1956 Unknown [id number] [id number] 1956 Unknown [id number] 1956 Unknown [id number] 1956 Unknown [id number] 1956 Unknown [id number] Social History Date Type Detail Facility Start: 11-16-2020 End: 06-12-2022 Tobacco smoking status HIIS Smokes tobacco daily [facility] History of tobacco use Cigarette Smoker C [facility] Start: 11-16-2020 End: 11-08-2022 Cigarettes smoked current (pack per day) - Reported 1 [facility] Start: 11-16-2020 End: 06-12-2022 Tobacco use and exposure Smokeless tobacco non-user [facility] Start: 08-08-2021 End: 06-01-2023 Alcohol intake Lifetime non-drinker (finding) [facility] Start: 11-16-2020 History SDOH Alcohol Frequency 1 [facility] Start: 02-25-2021 End: 06-12-2022 Tobacco Comment Pt has cut back to 1/2 pack daily. [facility] Start: 1955 Sex Assigned At Male [facility] Start: 09-25-2021 End: 10-05-2021 Exposure to SARS-CoV-2 (event) Not sure [facility] Start: 11-16-2020 End: 11-08-2022 Alcohol Use Disorder Identification Test - Consumption [AUDIT-C] [facility] How often to you hav e a drink containing alcohol? Never [facility] Average Number of Drinks Not on file [facility] Start: 02-12-2021 Gender identity Identifies as male gender (finding) [facility] Start: 02-12-2021 Sexual orientation Heterosexual (finding) [facility] Start: 12-23-2021 Tobacco smoking status Heavy tobacco smoker (finding) [facility] Alcohol Use: Alcohol Use: ; N o Alcohol Use. [employer] [facility] [employer] [place] [employer] [facility]. Marital status: Marital status: ; . [employer] [facility] [employer]ANT[employer]IE [employer] [facility] Tobacco use: Tobacco use: ; F ormer smoker. [facility] [employer] [place] [employer] [facility]. Smokes 1 pack of cigarettes per day [facility].; [employer] [place] [employer] [facility]. Work Phone: Remotely quit to bacco use [facility] [employer] [facility]. Work Phone: [facility]-smoker [facility] [employer].; [employer] [facility]. Work Phone: [facility] [employer].; [employer] [place] [employer] [facility]. Work Phone: Functional Status Date Assessment Result Facility 07-09-2023 Functional Status Maintained [facility] Mental Status Date Assessment Result Facility 07-09-2023 Mental Status Orientation Oriented x 4 [facility] 07-09-2023 Mental Status [facility] Clinical Notes 10-04-2021 to 07-09-2023 Note Date & Type Note Facility CHUNKY ADMISSION HISTORY AN D PHYSICIAL CHIEF COMPLAINT: HISTORY OF PRESENT ILLNESS: REVIEW OF SYSTEMS: ACTIVE PROBLEMS: (15) Acid reflux (491492726) Arthritis (2648740) Atrial fibrillation (07442865) Colon cancer (119937811) CVA (cerebrovascular accident) (357936358) Glasses (3035513007) Hematochezia (2578150082) History of CVA (cerebrovascular accident) (3063627220) Hypertension (5343527431) Melanoma (6966589143) On anticoagulant therapy (349270093) Presence of Watchman left atrial appendage closure device (7319449049) Pulmonary nodules (9745144385) Tinnitus (087309587) Tobacco use (2638398442) MEDICATIONS: Active Inpt Meds: None Active PRN Meds: None One Time Meds: None Active IV Meds: Lactated Ringers Infusion 1,000 mL Start: 07/09/23 9:33:00 EST, Rate: 50 mL/hr, 07/09/23 9:33:00 EST ALLERGIES: (1) No Known Medication Allergies FAMILY HISTORY: SOCIAL HISTORY: PHYSICAL EXAM: VITALS: YrpnexQkudCGGbhnkBVWbL7LZU9VvhtIw(kg) 07/09 09:3636.6--883662JF32/08 93.7 07/09 93.7 24 Hr Tmax: 36.6 at 07/09 09:36 36 Hr Tmax: 36.6 at 07/09 09:36 Vital Signs are the last 5 in the past 48 hours. Weights display the last 5 within 7 days. Initial Wt: 07/09 93.7 kg 206 lb Current Wt: 07/09 93.7 kg 206 lb GENERAL: HEENT: CARDIOVASCULAR: RESPIRATORY: ABDOMEN: EXREMETIES: NEUROLOGICAL: PSYCHIATRIC: LABS: No 36hr Lab Data DIAGNOSTICS: IMPRESSION: PLAN: History and Physical Update I have examined the patient; reviewed the H&P and there are no changes to the H&P unless noted below. Future Appointments Appointment Date:10/26/2023 03:30:00 PM Scheduled Provider: Location:[facility] Appointment Type:[facility] Future Scheduled Tests Laboratory* Type and Screen 10/17/22 * Basic Metabolic Panel 11/16/22 * Basic Metabolic Panel 10/17/22 * Complete Blood Count 11/16/22 * Complete Blood Count 10/17/22 * Complete Blood Count 09/14/22 * Lipid Profile 09/24/22 * N-Terminal proBNP 10/17/22 [facility] 01-08-2024 Hospital Discharge instructions Patient Education 07/09/2023 10:43:24 Monitored Anesthesia Care, Care After Monitored Anesthesia Care, Care After These instructions provide you with information about caring for yourself after your procedure. Your health care provider may also give you more specific instructions. Your treatment has been plannedaccording to current medical practices, but problems sometimes occur. Call your health care provider if you have any problems or questions after your procedure. What can I expect after the procedure? After your procedure, you may: Feel sleepy for several hours. Feel clumsy and have poor balance for several hours. Feel forgetful about what happened after the procedure. Have poor judgment for several hours. Feel nauseous or vomit. Have a sore throat if you had a breathing tube during the procedure. Follow these instructions at home: For at least 24 hours after the procedure: Have a responsible adult stay with you. It is important to have someone help care for you until youare awake and alert. Rest as needed. Do not: ?Participate in activities in which you could fall or become injured. ?Drive. ?Use heavy machinery. ?Drink alcohol. ?Take sleeping pills or medicines that cause drowsiness. ?Make important decisions or sign legal documents. ?Take care of children on your own. Eating and drinking Follow the diet that is recommended by your health care provider. If you vomit, drink water, juice, or soup when you can drink without vomiting. Make sure you have little or no nausea before eating solid foods. General instructions Take rxiw-yve-zbzqqtx and prescription medicines only as told by your health care provider. If you have sleep apnea, surgery and certain medicines can increase your risk for breathing problems. Follow instructions from your health care provider about wearing your sleep device: ?Anytime you are sleeping, including during daytime naps. ?While taking prescription pain medicines, sleeping medicines, or medicines that make you drowsy. If you smoke, do not smoke without supervision. Keep all follow-up visits as told by your health care provider. This is important. Contact a health care provider if: You keep feeling nauseous or you keep vomiting. You feel light-headed. You develop a rash. You have a fever. Get help right away if: You have trouble breathing. Summary For several hours after your procedure, you may feel sleepy and have poor judgment. Have a responsible adult stay with you for at least 24 hours or until you are awake and alert. This information is not intended to replace advice given to you by your health care provider. Make sure you discuss any questions you have with your health care provider. Document Released: 10/08/2016 Document Revised: 09/16/2018 Document Reviewed: 10/08/2016 [employer] Patient Education 2020 [employer]. 07/09/2023 10:43:21 Colon Polyps Colon Polyps Polyps are tissue growths inside the body. Polyps can grow in many places, including the large intestine (colon). A polyp may be a round bump or a mushroom-shaped growth. You could have one polyp or several. Most colon polyps are noncancerous (benign). However, some colon polyps can become cancerous over time. Finding and removing the polyps early can help prevent this. What are the causes? The exact cause of colon polyps is not known. What increases the risk? You are more likely to develop this condition if you: Have a family history of colon cancer or colon polyps. Are older than 50 or older than 45 if you are . Have inflammatory bowel disease, such as ulcerative colitis or Crohn's disease. Have certain hereditary conditions, such as: ?Familial adenomatous polyposis. ?Matthew syndrome. ?Turcot syndrome. ?Peutz Jeghers syndrome. Are overweight. Smoke cigarettes. Do not get enough exercise. Drink too much alcohol. Eat a diet that is high in fat and red meat and low in fiber. Had childhood cancer that was treated with abdominal radiation. What are the signs or symptoms? Most polyps do not cause symptoms. If you have symptoms, they may include: Blood coming from your rectum when having a bowel movement. Blood in your stool. The stool may look dark red or black. Abdominal pain. A change in bowel habits, such as constipation or diarrhea. How is this diagnosed? This condition is diagnosed with a colonoscopy. This is a procedure in which a lighted, flexible scope is inserted into the anus and then passed into the colon to examine the area. Polyps are sometimes found when a colonoscopy is done as part of routine cancer screening tests. How is this treated? Treatment for this condition involves removing any polyps that are found. Most polyps can be removed during a colonoscopy. Those polyps will then be tested for cancer. Additional treatment may be needed depending on the results of testing. Follow these instructions at home: Lifestyle Maintain a healthy weight, or lose weight if recommended by your health care provider. Exercise every day or as told by your health care provider. Do not use any products that contain nicotine or tobacco, such as cigarettes and e-cigarettes. If you need help quitting, ask your health care provider. If you drink alcohol, limit how much you have: ?0 1 drink a day for women. ? 0 2 drinks a day for men. Be aware of how much alcohol is in your drink. In the [place] one drink equals one 12 oz bottle of beer (355 mL), one 5 oz glass of wine (148 mL), or one 1 oz shot of hard liquor (44 mL). Eating and drinking Eat foods that are high in fiber, such as fruits, vegetables, and whole grains. Eat foods that are high in calcium and vitamin D, such as milk, cheese, yogurt, eggs, liver, fish, and broccoli. Limit foods that are high in fat, such as fried foods and desserts. Limit the amount of red meat and processed meat you eat, such as hot dogs, sausage, chaves, and lunch meats. General instructions Keep all follow-up visits as told by your health care provider. This is important. ?This includes having regularly scheduled colonoscopies. ?Talk to your health care provider about when you need a colonoscopy. Contact a health care provider if: You have new or worsening bleeding during a bowel movement. You have new or increased blood in your stool. You have a change in bowel habits. You lose weight for no known reason. Summary Polyps are tissue growths inside the body. Polyps can grow in many places, including the colon. Most colon polyps are noncancerous (benign), but some can become cancerous over time. This condition is diagnosed with a colonoscopy. Treatment for this condition involves removing any polyps that are found. Most polyps can be removed during a colonoscopy. This information is not intended to replace advice given to you by your health care provider. Make sure you discuss any questions you have with your health care provider. Document Released: 03/14/2005 Document Revised: 10/03/2018 Document Reviewed: 10/03/2018 [employer] Patient Education 2020 [employer]. 07/09/2023 10:43:19 Colonoscopy, Adult, Care After Colonoscopy, Adult, Care After This sheet gives you information about how to care for yourself after your procedure. Your health care provider may also give you more specific instructions. If you have problems or questions, contact your health care provider. What can I expect after the procedure? After the procedure, it is common to have: A small amount of blood in your stool for 24 hours after the procedure. Some gas. Mild abdominal cramping or bloating. Follow these instructions at home: General instructions For the first 24 hours after the procedure: ?Do not drive or use machinery. ?Do not sign important documents. ?Do not drink alcohol. ?Do your regular daily activities at a slower pace than normal. ?Eat soft, mduf-ah-dsblec foods. Take stdr-uuq-invycvm or prescription medicines only as told by your health care provider. Relieving cramping and bloating Try walking around when you have cramps or feel bloated. Apply heat to your abdomen as told by your health care provider. Use a heat source that your healthcare provider recommends, such as a moist heat pack or a heating pad. ?Place a towel between your skin and the heat source. ?Leave the heat on for 20 30 minutes. ?Remove the heat if your skin turns bright red. This is especially important if you are unable to feel pain, heat, or cold. You may have a greater risk of getting burned. Eating and drinking Drink enough fluid to keep your urine pale yellow. Resume your normal diet as instructed by your health care provider. Avoid heavy or fried foods thatare hard to digest. Avoid drinking alcohol for as long as instructed by your health care provider. Contact a health care provider if: You have blood in your stool 2 3 days after the procedure. Get help right away if: You have more than a small spotting of blood in your stool. You pass large blood clots in your stool. Your abdomen is swollen. You have nausea or vomiting. You have a fever. You have increasing abdominal pain that is not relieved with medicine. Summary After the procedure, it is common to have a small amount of blood in your stool. You may also have mild abdominal cramping and bloating. For the first 24 hours after the procedure, do not drive or use machinery, sign important documents, or drink alcohol. Contact your health care provider if you have a lot of blood in your stool, nausea or vomiting, a fever, or increased abdominal pain. This information is not intended to replace advice given to you by your health care provider. Make sure you discuss any questions you have with your health care provider. Document Released: 01/30/2005 Document Revised: 04/10/2018 Document Reviewed: 08/29/2016 [employer] Patient Education 2020 [employer]. Follow Up Care 07/06/2023 10:33:58 With:LESLI RENE Address: [address] [place] [phone] Business (1) When: Unknown Comments:YOU WILL NEED ANOTHER COLONOSCOPY IN 5 YEARS. [facility] 01-08-2024 Note Discharge Instructions Thank you for allowing [facility] to assist you with your healthcare needs. The following is importantdischarge information regarding your hospital visit. Your Care Team NAKIA HUTSON APRN-TAL What to do next Scheduled Follow-Up Appointments Appointment Type When Where Contact InformationCV OV 10/26/2023 03:30 PM EDT [facility] Follow Up Appointments Follow Up with LESLI RENE When Why: YOU WILL NEED ANOTHER COLONOSCOPY IN 5 YEARS. Where: [address] [place] [address] [phone] Business (1) The Following Activity and Diet Have Been Ordered for You Discharge Activity - Ordered -- NO activity restrictions, 07/09/23 10:24:00 EST Discharge Diet - Ordered -- Follow the post-operative/post-procedure diet instructions provided by your physician's office.,07/09/23 10:24:00 EST Allergies No Known Medication Allergies Medications Please ask your primary doctor or pharmacist before taking any other medication not listed, including over the counter drugs, herbal medications, vitamins and or supplements as they may interact withyour home medications. What How Much When Instructions Last Dose Unchanged aspirin (aspirin 81 mg oral delayed release tablet) 1 tab(s) by mouth Once a day (in the morning) Unchanged atorvastatin (atorvastatin 20 mg oral tablet) 1 tab(s) by mouth Daily at bedtime Unchanged dilTIAZem (DilTIAZem (Eqv-Cardizem CD) 180 mg/ 24 hours oral capsule, extended release) 1 cap by mouth Once a day (in the morning) Unchanged losartan (losartan 25 mg oral tablet) 1 tab(s) by mouth Once a day (in the morning) Unchanged pantoprazole (pantoprazole 40 mg oral enteric coated tablet) 1 tab(s) by mouth Once a day (in the evening) Please take this list to your next doctor s visit. Bring all medications you take, including over the counter medications, herbals and other supplements with you to your doctor s visit. Patients and families are reminded to discard old lists and to update any records with all medication providers or retail pharmacies. Education Materials Monitored Anesthesia Care, Care After These instructions provide you with information about caring for yourself after your procedure. Your health care provider may also give you more specific instructions. Your treatment has been plannedaccording to current medical practices, but problems sometimes occur. Call your health care provider if you have any problems or questions after your procedure. What can I expect after the procedure? After your procedure, you may: Feel sleepy for several hours. Feel clumsy and have poor balance for several hours. Feel forgetful about what happened after the procedure. Have poor judgment for several hours. Feel nauseous or vomit. Have a sore throat if you had a breathing tube during the procedure. Follow these instructions at home: For at least 24 hours after the procedure: Have a responsible adult stay with you. It is important to have someone help care for you until youare awake and alert. Rest as needed. Do not: ? Participate in activities in which you could fall or become injured. ? Drive. ? Use heavy machinery. ? Drink alcohol. ? Take sleeping pills or medicines that cause drowsiness. ? Make important decisions or sign legal documents. ? Take care of children on your own. Eating and drinking Follow the diet that is recommended by your health care provider. If you vomit, drink water, juice, or soup when you can drink without vomiting. Make sure you have little or no nausea before eating solid foods. General instructions Take uofc-qry-lhwkkaf and prescription medicines only as told by your health care provider. If you have sleep apnea, surgery and certain medicines can increase your risk for breathing problems. Follow instructions from your health care provider about wearing your sleep device: ? Anytime you are sleeping, including during daytime naps. ? While taking prescription pain medicines, sleeping medicines, or medicines that make you drowsy. If you smoke, do not smoke without supervision. Keep all follow-up visits as told by your health care provider. This is important. Contact a health care provider if: You keep feeling nauseous or you keep vomiting. You feel light-headed. You develop a rash. You have a fever. Get help right away if: You have trouble breathing. Summary For several hours after your procedure, you may feel sleepy and have poor judgment. Have a responsible adult stay with you for at least 24 hours or until you are awake and alert. This information is not intended to replace advice given to you by your health care provider. Make sure you discuss any questions you have with your health care provider. Document Released: 10/08/2016 Document Revised: 09/16/2018 Document Reviewed: 10/08/2016 [employer] Patient Education 2020 [employer]. Colon Polyps Polyps are tissue growths inside the body. Polyps can grow in many places, including the large intestine (colon). A polyp may be a round bump or a mushroom-shaped growth. You could have one polyp or several. Most colon polyps are noncancerous (benign). However, some colon polyps can become cancerous over time. Finding and removing the polyps early can help prevent this. What are the causes? The exact cause of colon polyps is not known. What increases the risk? You are more likely to develop this condition if you: Have a family history of colon cancer or colon polyps. Are older than 50 or older than 45 if you are . Have inflammatory bowel disease, such as ulcerative colitis or Crohn's disease. Have certain hereditary conditions, such as: ? Familial adenomatous polyposis. ? Matthew syndrome. ? Turcot syndrome. ? Peutz Jeghers syndrome. Are overweight. Smoke cigarettes. Do not get enough exercise. Drink too much alcohol. Eat a diet that is high in fat and red meat and low in fiber. Had childhood cancer that was treated with abdominal radiation. What are the signs or symptoms? Most polyps do not cause symptoms. If you have symptoms, they may include: Blood coming from your rectum when having a bowel movement. Blood in your stool. The stool may look dark red or black. Abdominal pain. A change in bowel habits, such as constipation or diarrhea. How is this diagnosed? This condition is diagnosed with a colonoscopy. This is a procedure in which a lighted, flexible scope is inserted into the anus and then passed into the colon to examine the area. Polyps are sometimes found when a colonoscopy is done as part of routine cancer screening tests. How is this treated? Treatment for this condition involves removing any polyps that are found. Most polyps can be removed during a colonoscopy. Those polyps will then be tested for cancer. Additional treatment may be needed depending on the results of testing. Follow these instructions at home: Lifestyle Maintain a healthy weight, or lose weight if recommended by your health care provider. Exercise every day or as told by your health care provider. Do not use any products that contain nicotine or tobacco, such as cigarettes and e-cigarettes. If you need help quitting, ask your health care provider. If you drink alcohol, limit how much you have: ? 0 1 drink a day for women. ? 0 2 drinks a day for men. Be aware of how much alcohol is in your drink. In the [place] one drink equals one 12 oz bottle of beer (355 mL), one 5 oz glass of wine (148 mL), or one 1 oz shot of hard liquor (44 mL). Eating and drinking Eat foods that are high in fiber, such as fruits, vegetables, and whole grains. Eat foods that are high in calcium and vitamin D, such as milk, cheese, yogurt, eggs, liver, fish, and broccoli. Limit foods that are high in fat, such as fried foods and desserts. Limit the amount of red meat and processed meat you eat, such as hot dogs, sausage, chaves, and lunch meats. General instructions Keep all follow-up visits as told by your health care provider. This is important. ? This includes having regularly scheduled colonoscopies. ? Talk to your health care provider about when you need a colonoscopy. Contact a health care provider if: You have new or worsening bleeding during a bowel movement. You have new or increased blood in your stool. You have a change in bowel habits. You lose weight for no known reason. Summary Polyps are tissue growths inside the body. Polyps can grow in many places, including the colon. Most colon polyps are noncancerous (benign), but some can become cancerous over time. This condition is diagnosed with a colonoscopy. Treatment for this condition involves removing any polyps that are found. Most polyps can be removed during a colonoscopy. This information is not intended to replace advice given to you by your health care provider. Make sure you discuss any questions you have with your health care provider. Document Released: 03/14/2005 Document Revised: 10/03/2018 Document Reviewed: 10/03/2018 [employer] Patient Education 2020 [employer]. Colonoscopy, Adult, Care After This sheet gives you information about how to care for yourself after your procedure. Your health care provider may also give you more specific instructions. If you have problems or questions, contact your health care provider. What can I expect after the procedure? After the procedure, it is common to have: A small amount of blood in your stool for 24 hours after the procedure. Some gas. Mild abdominal cramping or bloating. Follow these instructions at home: General instructions For the first 24 hours after the procedure: ? Do not drive or use machinery. ? Do not sign important documents. ? Do not drink alcohol. ? Do your regular daily activities at a slower pace than normal. ? Eat soft, enko-bl-rwvjkz foods. Take dbqv-hde-qvsjfwb or prescription medicines only as told by your health care provider. Relieving cramping and bloating Try walking around when you have cramps or feel bloated. Apply heat to your abdomen as told by your health care provider. Use a heat source that your healthcare provider recommends, such as a moist heat pack or a heating pad. ? Place a towel between your skin and the heat source. ? Leave the heat on for 20 30 minutes. ? Remove the heat if your skin turns bright red. This is especially important if you are unable to feel pain, heat, or cold. You may have a greater risk of getting burned. Eating and drinking Drink enough fluid to keep your urine pale yellow. Resume your normal diet as instructed by your health care provider. Avoid heavy or fried foods thatare hard to digest. Avoid drinking alcohol for as long as instructed by your health care provider. Contact a health care provider if: You have blood in your stool 2 3 days after the procedure. Get help right away if: You have more than a small spotting of blood in your stool. You pass large blood clots in your stool. Your abdomen is swollen. You have nausea or vomiting. You have a fever. You have increasing abdominal pain that is not relieved with medicine. Summary After the procedure, it is common to have a small amount of blood in your stool. You may also have mild abdominal cramping and bloating. For the first 24 hours after the procedure, do not drive or use machinery, sign important documents, or drink alcohol. Contact your health care provider if you have a lot of blood in your stool, nausea or vomiting, a fever, or increased abdominal pain. This information is not intended to replace advice given to you by your health care provider. Make sure you discuss any questions you have with your health care provider. Document Released: 01/30/2005 Document Revised: 04/10/2018 Document Reviewed: 08/29/2016 [employer] Patient Education 2020 [employer]. Additional Information VACCINATE! IT SAVES LIVES! Members of the community who have not yet received the COVID-19 vaccine and would like to receive it can visit one of [facility] vaccine clinics. There are many vaccine clinic locations within the [facility]. For locations and available times, please visit https://gettheshot.coronavirus.[place].gov/. It is important to note that some COVID mobile vaccine clinics are held outdoors and may be canceled in rainy or stormy conditions. To learn more about pediatric vaccinations (ages 5-11), we invite you to visit the [facility] webpage. [email or web address]://www.[email or web address].org/pages/8629-Riqog-Dfpnojgxjuv-Cfbvtbidkd-Cxfjn-Izo stions.htmlTo learn more about the COVID-19 vaccine, we invite you to visit the CDC website for a list of frequently asked questions.https://www.cdc.gov/coronavirus/2019-ncov/vaccines/faq.html [facility] Patient Portal Access Instructions: Stay connected with your healthcare team and access your personal medical information anytime with the [facility] Patient Portal. Please follow the directions below to create your [facility] account: 1.Access the email account you provided upon registration to the hospital/physician office.2.Look for an invitation email from [facility].3.Open the email and access the invitation link: AcceptInvitation to [facility].4.Fill in the required roman to create your account. To access your account, visit [email or web address]. Click the blue button labeled Access Patient Portal and then log in with the username and password that you created in the steps above. You will be able to view your test results, lab results, a summary of your visits, upcoming appointments and more. There is also a convenient messaging option where you can send secure messages to your p rovider. In addition, you will have the ability to download any documents or summaries to your computer and/or send the information securely to a physician. Remember that your healthcare information is confidential, so carefully consider who you will allowto register on the [facility] Patient Portal for access to your information. You can also access the [place] [employer] [facility] Patient Portal on the [place] [facility] alison. Simply click on Patient Portal and then log into your account. If you would like to receive a full copy of your medical records, please contact the [facility] Medical Records Department by calling [phone], Sunday through Sunday between 8 a.m. and 4:30 p.m. HOW TO SAFELY DISPOSE OF PRESCRIPTION MEDICATIONS Please use one of the following methods to safely dispose of your unused medications. 1.Use a drug disposal kit: the drug disposal pouch allows you to safely discard your old and unuseddrugs. Ask your nurse to give you one when you are discharged.2.Visit a local take-back location: Many local pharmacies and police departments have programs that collect old and unwanted prescriptiondrugs. Call your local pharmacy or go to http://EverPresent.[employer] [place]/4G5Bk1v to find one close to you.3.Make use of household items: Use cat litter or old coffee grounds to dispose medications if other options arenot available. Mix your drugs with these household products, seal them in an airtight container andthrow it into the garbage. Call [facility]: [phone] to be sure your drugs can be disposed of in this way. Some medicines may require a different approach.4.Never flush your medications down the toilet. IF YOU HAVE BEEN PRESCRIBED AN OPIOID FOR PAIN If you have been prescribed an opioid (such as hydrocodone, oxycodone or morphine), it is critical to understand the possible side effects and risks of opioid pain medications. Even when taken as directed, opioids can have several side effects including: Tolerance, meaning you might need to take more of a medication for the same pain relief. Nausea, vomiting and/or constipation. Sleepiness, dizziness, dry mouth, confusion, depression or itching. Physical dependence, meaning you have withdrawal symptoms when a medication is stopped, can develop within a few days. KNOW YOUR RESPONSIBILITIES It is important to know exactly how much and how often to take the opioid pain medications you are prescribed. Never take opioids in higher amounts or more often than prescribed. Do not combine opioids with alcohol or other drugs that cause drowsiness, such as benzodiazepines, also known as benzos, including diazepam and alprazolam, muscle relaxants or sleep aids. Never sell or share prescription opioids. This is illegal. Store opioids in a secure place and out of reach of others (including children, family, friends and visitors). The last page of this document has been signed and retained as a CHART COPY. Signatures Patient Education Materials Monitored Anesthesia Care, Care After Colon Polyps Colonoscopy, Adult, Care After Medication Leaflets My discharge plan and instructions have been reviewed and explained to me and I,WELLINGTON MIKE Elyse understand my current condition and have read and understand these discharge instructions. I have received a written copy of the plan/instructions. If I have questions, I am aware that I should contact my doctor. Patient/Market Consultant Signature: Date/Time: Relationship to Patient: Witness Name/Signature: Date/Time: [facility]01-08-2024 Anesthesiology Consult note Patient: NICOLE MONTEIROROSMERY Pappas Age: 68 years Sex: Male : 1955 Associated Diagnoses: None Author: DEBO CHAUDHARI APRN-AUTOMOTIVE PRODUCT SPECIALIST Assessment Postanesthesia assessment Vitals: Vital signs from flowsheet : Vital Signs 07/09/2023 10:20 EST Heart Rate Monitored 73 bpm bpm Respiratory Rate - Anes 17 br/min br/min 07/09/2023 10:15 EST Heart Rate Monitored 73 bpm bpm Respiratory Rate - Anes 19 br/min br/min Systolic Blood Pressure Non-Invasive 178 mmHg mmHg Diastolic Blood Pressure Non-Invasive 89 mmHg mmHg 07/09/2023 10:10 EST Heart Rate Monitored 88 bpm bpm Respiratory Rate - Anes 37 br/min br/min Systolic Blood Pressure Non-Invasive 151 mmHg mmHg Diastolic Blood Pressure Non-Invasive 83 mmHg mmHg 07/09/2023 10:07 EST Systolic Blood Pressure Non-Invasive 184 mmHg mmHg Diastolic Blood Pressure Non-Invasive 92 mmHg mmHg 07/09/2023 9:36 EST Temperature Temporal Artery 36.6 DegC Apical Heart Rate 90 bpm Respiratory Rate 18 br/min Systolic Blood Pressure Non-Invasive 159 mmHg HI Diastolic Blood Pressure Non-Invasive 88 mmHg , Measurements from flowsheet . Mental status: alert & oriented x 4. Respiratory function: respirations are non-labored. Respiratory support: none. CV function: Normal rate. Cardiovascular support: none. Pain. Nausea status: see nursing documentation of medications. Postoperative hydration status: within normal limits. Digitally Signed by DEBO CHAUDHARI on 07/09/2023 10:23 AM [facility]01-08-2024 Note CHUNKY ADMISSION HISTORY AND PHYSICIAL CHIEF COMPLAINT: HISTORY OF PRESENT ILLNESS: REVIEW OF SYSTEMS: ACTIVE PROBLEMS: (15) Acid reflux (373236398) Arthritis (4105582) Atrial fibrillation (98000715) Colon cancer (117448209) CVA (cerebrovascular accident) (227176023) Glasses (0759215806) Hematochezia (3620789880) History of CVA (cerebrovascular accident) (2610324766) Hypertension (4948015060) Melanoma (5209662267) On anticoagulant therapy (256601740) Presence of Watchman left atrial appendage closure device (5368049419) Pulmonary nodules (4775540398) Tinnitus (280298920) Tobacco use (2453899176) MEDICATIONS: Active Inpt Meds: None Active PRN Meds: None One Time Meds: None Active IV Meds: Lactated Ringers Infusion 1,000 mL Start: 07/09/23 9:33:00 EST, Rate: 50 mL/hr, 07/09/23 9:33:00 EST ALLERGIES: (1) No Known Medication Allergies FAMILY HISTORY: SOCIAL HISTORY: PHYSICAL EXAM: VITALS: BraxlyCxcjUIWvfduRQWuF2JJS2FutzGf(kg) 07/09 09:3636.6--999276PJ89/08 93.7 07/09 93.7 24 Hr Tmax: 36.6 at 07/09 09:36 36 Hr Tmax: 36.6 at 07/09 09:36 Vital Signs are the last 5 in the past 48 hours. Weights display the last 5 within 7 days. Initial Wt: 07/09 93.7 kg 206 lb Current Wt: 07/09 93.7 kg 206 lb GENERAL: HEENT: CARDIOVASCULAR: RESPIRATORY: ABDOMEN: EXREMETIES: NEUROLOGICAL: PSYCHIATRIC: LABS: No 36hr Lab Data DIAGNOSTICS: IMPRESSION: PLAN: History and Physical Update I have examined the patient; reviewed the H&P and there are no changes to the H&P unless noted below. Digitally Signed by LESLI RENE MD on 07/09/2023 10:11 AM [facility]01-08-2024 Anesthesiology Consult note Patient: MIKE MONTEIRO Age: 68 years Sex: Male : 1955 Associated Diagnoses: None Author: DEBO CHAUDHARI APRN-AUTOMOTIVE PRODUCT SPECIALIST Preoperative Information Time of last solid food intake: 07/09/2023 00:00:00 Time of last clear liquid intake: 07/09/2023 06:00:00 Anesthesia history Patient's history: negative. Family's history: negative. Health Status Allergies: Allergic Reactions (Selected) No Known Medication Allergies, Allergies (1) ActiveReaction No Known Medication AllergiesNone Documented Current medications: (Selected) Inpatient Medications Ordered Lactated Ringers Infusion 1,000 mL: 50 mL/hr, Intravenous Prescriptions Prescribed losartan 25 mg oral tablet: 25 mg, 1 tab(s), Oral, qAM, 30 tab(s), 2 Refill(s) Documented Medications Documented DilTIAZem (Eqv-Cardizem CD) 180 mg/24 hours oral capsule, extended release: 180 mg, 1 cap(s), Oral,qAM, 0 Refill(s) aspirin 81 mg oral delayed release tablet: 81 mg, 1 tab(s), Oral, qAM, 0 Refill(s) atorvastatin 20 mg oral tablet: 20 mg, 1 tab(s), Oral, qHS, 90 tab(s), 0 Refill(s) pantoprazole 40 mg oral enteric coated tablet: 40 mg, 1 tab(s), Oral, qPM, 90 tab(s), 0 Refill(s), Medications (1) Active Scheduled: (0) Continuous: (1) Lactated Ringers 1,000 mL 1,000 mL, Intravenous, 50 mL/hr PRN: (0) Problem list: Medical Atrial fibrillation / SNOMED CT 19719330 / Confirmed CVA (cerebrovascular accident) / SNOMED CT 610234620 / Confirmed Presence of Watchman left atrial appendage closure device / SNOMED CT 6589944974 / Confirmed Hematochezia / SNOMED CT 5635920046 / Confirmed History of CVA (cerebrovascular accident) / SNOMED CT 7943744328 / Confirmed Hypertension / SNOMED CT 9931494128 / Confirmed, Active Problems (15) Acid reflux Arthritis Atrial fibrillation Colon cancer CVA (cerebrovascular accident) Glasses Hematochezia History of CVA (cerebrovascular accident) Hypertension Melanoma On anticoagulant therapy Presence of Watchman left atrial appendage closure device Pulmonary nodules Tinnitus Tobacco use Histories Past Medical History: No active or resolved past medical history items have been selected or recorded. Family History: Entire family history is negative. Procedure history: Colonoscopy ([id number]) on 07/09/2023 at 68 Years. Echocardiogram ([id number]) on 11/22/2021 at 66 Years. Comments: 09/26/2022 16:23 EDT - Maranda Paris RN CONCLUSION: 1. There is mild concentric left ventricular hypertrophy. Systolic ejection fraction is 55-60%. There are no regional wall motion abnormality seen. 2. There are no significant valvular dysfunction seen. 3. Right ventricle is normal in size systolic function 4. Estimated right ventricular systolic pressure is 30 mm Hg. 5. Agitated saline did not show nnvye-rk-paiy shunt at rest and with provocation. Imaging of carotid arteries by duplex scan with spectrum analysis ([id number]) on 11/22/2021 at 66 Years. Comments: 09/26/2022 16:23 EDT - Maranda Paris RN CONCLUSION: 1. Moderate irregular mixed plaque is present bilaterally. 2. There is no evidence of hemodynamically significant stenosis. Colectomy (25516711) in 2020 at 66 Years. Comments: 12/23/2021 10:05 EDT - Beulah Manzanares MA (ABR-OE) Right EGD - Esophagogastroduodenoscopy (5336685090). Colonoscopy (055142891). Melanoma of skin (8629644784). Watchman (66427836). Social History Social & Psychosocial Habits Alcohol 06/18/2023 Use: Never 06/18/2023Risk Assessment: Denies Alcohol Use Employment/School 06/18/2023 Status: Employed Substance Abuse 06/18/2023 Use: Never 06/18/2023Risk Assessment: Denies Substance Abuse Tobacco 06/18/2023 Tobacco Use: 10 or more cigarettes (1/ Type: Cigarettes Tobacco use per day: 1 Number of years: 30 Started at age: 21 Years Ready to change: Yes Home/Environment 06/18/2023 Domestic Concerns None Living situation: Home/Independent Spouse Name Melanie Marital Status of Patient if Patient Independent Adult: Nutrition/Health 06/18/2023 Caffeine intake amount: 2-3 servings daily . Physical Examination Vital Signs 07/09/2023 9:36 EST Temperature Temporal Artery 36.6 DegC Apical Heart Rate 90 bpm Respiratory Rate 18 br/min Systolic Blood Pressure Non-Invasive 159 mmHg HI Diastolic Blood Pressure Non-Invasive 88 mmHg Vital Signs(last 24 hrs) Last Charted Resp Rate 18 br/min (JUL 09 09:36) SBPH 159mmHg (JUL 09 09:36) DBP88 mmHg (JUL 09 09:36) BMI29.64 (JUL 09 09:45) Measurements from flowsheet : Measurements 07/09/2023 9:45 EST Height 177.8 cm Admission Weight 93.7 kg [place] Body Weight 73.00 kg BSA Admission 2.12 Body Mass Index 29.64 kg/m2 07/09/2023 9:36 EST Height 177.8 cm Admission Weight 93.7 kg [place] Body Weight 73.00 kg Admission Body Mass Index 29.64 m2 Pain assessment: Pain Assessment 07/09/2023 9:36 EST Primary Pain Intensity 0 Pain Scale Type 0-10 Pain scale . General: Alert and oriented. Airway: Normal temporomandibular joint mobility, Normal mouth, Normal neck range of motion. Mallampati classification: III (soft palate, base of uvula visible). Dentition Evaluation: Denies loose/chipped teeth. Respiratory: Respirations are non-labored. Cardiovascular: Normal rate. Neurologic: Alert, Oriented. Review / Management Results review: No qualifying data available , Lab results 07/09/2023 10:06 EST SN - Proc - Anesthesia Type MAC SN - Proc - EBL 0 mL SN - Proc - Actual Procedure COLONOSCOPY 07/09/2023 10:04 EST SN - PP - Body Position Lateral Right Side-up Standard Intra-op 07/09/2023 10:01 EST SN - GCD - Post-operative Diagnosis SCREENING SN - GCD - Case Level OPD Level 3 07/09/2023 10:01 EST SN - CAt - Case Attendee SN - CAt - Case Attendee SN - CAt - Case Attendee SN - CAt - Case Attendee SN - CAt - Case Attendee SN - CAt - Case Attendee SN - CAt - Case Attendee SN - CAt - Case Attendee SN - CAt - Role Performed Primary Surgeon SN - CAt - Role Performed Light Truck Driver 1 SN - CAt - Role Performed Mechanical Manufacturing Engineer SN - CAt - Role Performed AUTOMOTIVE PRODUCT SPECIALIST 07/09/2023 9:53 EST Lactated Ringers Injection Begin Bag 1,000 mL mL 07/09/2023 9:52 EST Antecubital Right 07/09/2023 22 gauge Peripheral IV Activity: Insert new site Peripheral IV Dressing Condition: Clean, Dry, Intact Peripheral IV Dressing Activity: Applied, Transparent dressing Peripheral IV Line Status/Patency: Continuous infusion Peripheral IV Line Care: Secured with tape Peripheral IV Site Condition: No complications Peripheral IV Equipment: Extension set Peripheral IV Number of Attempts: 1 07/09/2023 9:45 EST Designated Person #1 We May Share VASU Navarro [phone] Designated Person #1 Relationship Spouse Height 177.8 cm Admission Weight 93.7 kg [place] Body Weight 73.00 kg BSA Admission 2.12 Body Mass Index 29.64 kg/m2 Status N/A Sensory Deficits None Infectious Disease Symptoms Patient states no symptoms Infectious Disease Recent Exposure No Alcohol and Drug Use No Employee of Institutional Living No Health Care Employee No History of Exposure to TB No History of Positive Chest X-Ray for TB No History of Positive TB Skin Test No Homeless No Known Immunosuppression No Recent Immigrant No Resident of Institutional Living No Bloody Sputum No Fatigue No Fever No Loss of Appetite No Night Sweats No Persistent Cough > 3 Weeks No Weight Loss No Barriers to Learning None evident Teaching Method Electronic, Explanation, Printed materials Preferred Spoken Language Greek Preferred Written Language Greek Information Given by Patient Patient's Current Physicians Patient's Current Physicians Discharge To, Anticipated Home with family care Prev Test Positive/Diagnosis w/COVID-19 No Current Quarantine/Isolated any Illness No Any Contact with Sick Animals/Birds No Traveled Anywhere in Last 30 Days No N/A Personal Devices, Patient Valuables Glasses Admission Note-Nursing Procedure/Therapy Intake 07/09/2023 9:42 EST Allergies Yes Anesthesia Extension Set Applied Yes Loss Prevention Guard On Yes Colon Prep Results Excellent Consent Form Signed Yes Patient Dressed In Hospital gown Pre-op Preparation Glasses removed, Undergarments removed History & Physical Update On Chart Yes History & Physical On Chart Yes Obstructive Sleep Apnea Assess Completed No Belongings At Bedside Transferred with patient Personal Home Medications Received No home medications were brought in Belongings to Security/Secured in Dept None NPO Status Maintained Patient ID Band on and Verified Yes Implants Verified Yes Pacemaker/AICD Verified Yes Site Verified by Patient/Family Yes Anesthesia Consent Signed Yes Last Fluid Intake 07/09/2023 5:30 Last Food Intake 07/08/2023 7:00 07/09/2023 9:36 EST Height 177.8 cm Admission Weight 93.7 kg [place] Body Weight 73.00 kg Admission Body Mass Index 29.64 m2 Temperature Temporal Artery 36.6 DegC Apical Heart Rate 90 bpm Respiratory Rate 18 br/min Systolic Blood Pressure Non-Invasive 159 mmHg HI Diastolic Blood Pressure Non-Invasive 88 mmHg Primary Pain Intensity 0 Pain Scale Type 0-10 Pain scale Heart Rhythm Regular Respirations Unlabored All Lobes Breath Sounds Clear, Diminished Oxygen Therapy Room air Oxygen Saturation 95 % Bowel Sounds All Quadrants Present Skin Temperature Warm Skin Description Prosperity, Dry Skin Integrity Intact Mucous Membrane Color Prosperity Characteristics of Speech Clear Level of Consciousness Alert Strength All Extremities Strong Affect/Behavior Appropriate, Calm, Cooperative Orientation Oriented x 4 Patient Identified Identification band, Verbal Arrival Mode Ambulatory Dorothy Motor (2) Moves 4 extremities voluntarily or on command Dorothy Respirations (2) Spontaneous respiration without support, RR > 10 Dorothy Blood Pressure (2) BP 20% above or below preanesthetic level Dorothy Pulse (2) Pulse 20% above or below preanesthetic level Dorothy Oxygen Saturation (2) 94% or more Dorothy Level of Consciousness (2) Fully awake Dorothy III Score 12 Assistive Device None Activity Status ADL Awake Standard Safety ID band on, Call device within reach, Bed in low position, Wheels locked . Assessment and Plan [place] Society of Anesthesiologists (ASA) physical status classification: Class III. Anesthetic Preoperative Plan Anesthetic technique: MAC. Informed consent: signed by patient. Digitally Signed by DEBO CHAUDHARI on 07/09/2023 10:09 AM [facility]12-01-2023 NoteHNO ID: [id number] Author: Hanna Graham MD Service: ? Author Type: Physician Type: Progress Notes Filed: 06/02/2023 12:27 PM Note Text: Mike Monteiro 1955 REFERRING PHYSICIAN: No ref. provider found CHIEF COMPLAINT: Follow Up (FNA of thyroid) HPI: The patient is a 68 year old male presents with abnormal ultrasound of thyroid. On 05/25/2023 he underwent US guided left thyroid nodule which reveals probable benign follicular nodule though insufficient follicular cells in specimen PAST MEDICAL HISTORY Diagnosis Date Acid reflux Cerebellar stroke (HCC) Essential hypertension Skin cancer basil cell back PAST SURGICAL HISTORY Procedure Laterality Date APPENDECTOMY COLONOSCOPY SCREENING 2019 EGD W/O BRSH SPEC VARICIES INJ 2019 LAPAROSCOPIC HEMICOLECTOMY Bob PAST SURGICAL HISTORY OF 11/2022 heart watchman REPAIR INCISIONAL HERNIA,REDUCIBLE Bilateral Current Outpatient Medications Medication Sig clopidogrel (PLAVIX) 75 mg tablet Take 75 mg by mouth once daily. atorvastatin (LIPITOR) 20 mg tablet Take 20 mg by mouth once daily. DILT-XR 180 mg 24 hr capsule Take 180 mg by mouth once daily. losartan (COZAAR) 25 mg tablet Take 25 mg by mouth once daily. aspirin, enteric coated (ASPIRIN, ENTERIC COATED) 81 mg EC tablet Take 81 mg by mouth once daily. pantoprazole DR (PROTONIX) 40 mg tablet Take 1 tablet by mouth once daily. No current facility-administered medications for this visit. ALLERGIES: Patient has no known allergies. REVIEW OF SYSTEMS: Denies pain Denies fevers. PHYSICAL EXAMINATION: General: The patient is 68 year old male, well nourished, well hydrated in no acute distress. The patient is oriented to time, place, and person. VITALS: Blood pressure 132/78, pulse 106, temperature 36.7 ?C (98.1 ?F), SpO2 95%. There is no height or weight on file to calculate BMI. Head: Normal cephalic, atraumatic Eyes: pupils are equally round, sclera are clear/anicteric Neck is supple with no tracheal deviation Respiratory: Normal respiratory excursion and pattern. Abdominal exam: benign Extremities: no clubbing, cyanosis or edema. Neuro: non focal Psych: normal mood Assessment IMPRESSION: thyroid nodule PLAN: I have discussed the above with the patient. More than likely, this is a benign follicular nodule. I have recommended follow up in 1 year with US. I will place order for this. I have counseled patient to return to clinic if any worsening signs/symptoms. I have answered all questions to the patient?s satisfaction and the patient has no further questions. I have confirmed and edited as necessary, the PFSH and ROS obtained by others. . Diagnoses: (E04.1) Thyroid nodule (primary encounter diagnosis) I spent a total of 10 minutes on the date of the service which included preparing to see the patient with review of any pertinent laboratory studies/radiological imaging/medical records , [id number] patient care, obtaining oral medical history from the patient in this encounter, performing a medically appropriate examination, counseling and educating the patient/family/caregiver, and ordering and/or scheduling of medications/tests/procedures, and completing appropriate medical documentation. [facility]12-01-[facility]23 History of Present illness Narrative* Hanna Graham MD - 06/01/2023 3:31 PM EST Mike Monteiro 1955 REFERRING PHYSICIAN: No ref. provider found CHIEF COMPLAINT: Follow Up (FNA of thyroid) HPI: The patient is a 68 year old male presents with abnormal ultrasound of thyroid. On 05/25/2023 he underwent US guided left thyroid nodule which reveals probable benign follicular nodule though insufficient follicular cells in specimen PAST MEDICAL HISTORY Diagnosis Date Acid reflux Cerebellar stroke (HCC) Essential hypertension Skin cancer basil cell back PAST SURGICAL HISTORY Procedure Laterality Date APPENDECTOMY COLONOSCOPY SCREENING 2019 EGD W/O [facility] SPEC VARICIES INJ 2019 LAPAROSCOPIC HEMICOLECTOMY Bob PAST SURGICAL HISTORY OF 11/2022 heart watchman REPAIR INCISIONAL HERNIA,REDUCIBLE Bilateral Current Outpatient Medications Medication Sig clopidogrel (PLAVIX) 75 mg tablet Take 75 mg by mouth once daily. atorvastatin (LIPITOR) 20 mg tablet Take 20 mg by mouth once daily. DILT-XR 180 mg 24 hr capsule Take 180 mg by mouth once daily. losartan (COZAAR) 25 mg tablet Take 25 mg by mouth once daily. aspirin, enteric coated (ASPIRIN, ENTERIC COATED) 81 mg EC tablet Take 81 mg by mouth once daily. pantoprazole DR (PROTONIX) 40 mg tablet Take 1 tablet by mouth once daily. No current facility-administered medications for this visit. ALLERGIES: Patient has no known allergies. REVIEW OF SYSTEMS: Denies pain Denies fevers. PHYSICAL EXAMINATION: General: The patient is 68 year old male, well nourished, well hydrated in no acute distress. The patient is oriented to time, place, and person. VITALS: Blood pressure 132/78, pulse 106, temperature 36.7 C (98.1 F), SpO2 95%. There is no heightor weight on file to calculate BMI. Head: Normal cephalic, atraumatic Eyes: pupils are equally round, sclera are clear/anicteric Neck is supple with no tracheal deviation Respiratory: Normal respiratory excursion and pattern. Abdominal exam: benign Extremities: no clubbing, cyanosis or edema. Neuro: non focal Psych: normal mood Assessment IMPRESSION: thyroid nodule PLAN: I have discussed the above with the patient. More than likely, this is a benign follicular nodule. I have recommended follow up in 1 year with US. I will place order for this. I have counseled patient to return to clinic if any worsening signs/symptoms. I have answered all questions to the patient s satisfaction and the patient has no further questions. I have confirmed and edited as necessary, the PFSH and ROS obtained by others. . Diagnoses: (E04.1) Thyroid nodule (primary encounter diagnosis) I spent a total of 10 minutes on the date of the service which included preparing to see the patient with review of any pertinent laboratory studies/radiological imaging/medical records , [id number] patient care, obtaining oral medical history from the patient in this encounter, performing a medically appropriate examination, counseling and educating the patient/family/caregiver, and ordering and/or scheduling of medications/tests/procedures, and completing appropriate medical documentation. [facility] NoteHNO ID: [id number] Author: Hanna Graham MD Service: ? Author Type: Physician Type: Progress Notes Filed: 05/25/2023 2:32 PM Note Text: Mike presents for US guided FNA of left thyroid nodule PROCEDURE NOTE: After informed consent was given and patient gives permission for the procedure, the patient was in the supine position with neck in slight extension. Appropriate time out protocol was followed. The ultrasound machine was used for real time imaging. The anterior neck skin was cleansed with a sterile surgical skin preparation. The skin and subcutaneous tissues were infiltrated with 1% xylocaine with epinephrine. The ultrasound transducer probe was brought up to localize the thyroid nodules. The left thyroid nodule was identified with the US transducer. It was in the lower lobe. It was about 2.5 cm It appeared partially cystic. It was very low in the thyroid gland and the patient's neck. A 22 G needle attached to a 10 cc syringe was inserted into the nodule under US guidance. Several passes were made to ensure obtaining enough material. The needle was withdrawn. Smear slides were made and also the specimen was placed in a formalin solution and forwarded to pathology. The above was repeated with a new 22 G needle attached to a 10 cc syringe. This was done to ensure adequate sampling. This process was again repeated until adequate sampling was deemed to be achieved. The specimens were then forwarded to pathology. Hemostasis was achieved by pressure. A small bandaid was applied and patient told that he could remove it tomorrow. No evidence of bleeding noted. Patient tolerated procedure well. Complications - none EBL - minimal PLAN: Patient given wound care instructions by clinic staff. Patient will be set up for telehealth visit for discussion of results. Patient acknowledges the above.[facility]11-24-[facility] NoteHNO ID: [id number] Author: Clau Cortes RN Service: ? Author Type: Registered Nurse Type: Progress Notes Filed: 05/25/2023 2:24 PM Note Text: UNIVERSAL PROTOCOL / SAFETY CHECKLIST Procedure to be Performed: US guided FNA of left thyroid nodule Sign In: A Moment of CARE was completed. Personnel directly involved with the procedure wore the appropriate PPE (Personal Protective Equipment). No special equipment needed. Patient/Surrogate Stated/Verified: PATIENT VERIFIED(optional for EMERGENT procedures): Patient name, Date of , Relevant allergies, and The intended procedure Time Out Communication: Intended patient and procedure match the source documents. Consent documented and matches the intended procedure. Relevant labs, photos, and/or imaging studies have been reviewed. Correct side/site marked and visible. Medications required for procedure verified. No fire risk assessment and interventions applicable. No implant(s) inserted. Sign Out: SIGN OUT (optional for EMERGENT procedures): All specimen containers correctly labeled. All instruments, equipment, possible retained foreign bodies accounted for. No instruments, equipment or retained foreign bodies applicable. Post-procedure follow-up management communicated and Plan of Care Visit completed when applicable. [facility] Inst[facility]* Patient Instructions* Clau Cortes RN - 05/25/2023 2:23 PM EST The following instructions are important for you related to your office visit today with the [facility] General Surgeons. Instructions After THYROID FINE NEEDLE ASPIRATION Please do not take aspirin or other blood thinners for the next few days. If you have bleeding from the needle site, hold pressure with a clean gauze. If the bleeding continues, contact our office immediately. I recommend taking Advil or Tylenol for the discomfort. An ice pack may improve your discomfort to the area. Contact our office immediately if you have any questions or concerns @ [phone]. Please call our office in 10 days if you haven't heard back from your physician and thank you for choosing the [facility]. If you note any additional difficulties, questions, or concerns, you should contact our office immediately @ [phone] and ask to be transferred to the General Surgery department. [facility] History of Present illness Narrative* Hanna Graham MD - 05/25/2023 2:22 PM EST Mike presents for US guided FNA of left thyroid nodule PROCEDURE NOTE: After informed consent was given and patient gives permission for the procedure, the patient was inthe supine position with neck in slight extension. Appropriate time out protocol was followed. The ultrasound machine was used for real time imaging. The anterior neck skin was cleansed with a sterile surgical skin preparation. The skin and subcutaneous tissues were infiltrated with 1% xylocaine with epinephrine. The ultrasound transducer probe was brought up to localize the thyroid nodules. The left thyroid nodule was identified with the US transducer. It was in the lower lobe. It was about 2.5 cm It appeared partially cystic. It was very low in the thyroid gland and the patient's neck. A 22 G needle attached to a 10 cc syringe was inserted into the nodule under US guidance. Several passes were made to ensure obtaining enough material. The needle was withdrawn. Smear slides were made and also the specimen was placed in a formalin solution and forwarded to pathology. The above was repeated with a new 22 G needle attached to a 10 cc syringe. This was done to ensure adequate sampling. This process was again repeated until adequate sampling was deemed to be achieved. The specimens were then forwarded to pathology. Hemostasis was achieved by pressure. A small bandaid was applied and patient told that he could remove it tomorrow. No evidence of bleeding noted. Patient tolerated procedure well. Complications - none EBL - minimal PLAN: Patient given wound care instructions by clinic staff. Patient will be set up for telehealth visit for discussion of results. Patient acknowledges the above. * Clau Cortes RN - 05/25/2023 1:50 PM EST UNIVERSAL PROTOCOL / SAFETY CHECKLIST Procedure to be Performed: US guided FNA of left thyroid nodule Sign In: A Moment of CARE was completed. Personnel directly involved with the procedure wore the appropriate PPE (Personal Protective Equipment). No special equipment needed. Patient/Surrogate Stated/Verified: PATIENT VERIFIED(optional for EMERGENT procedures): Patient name, Date of , Relevant allergies, and The intended procedure Time Out Communication: Intended patient and procedure match the source documents. Consent documented and matches the intended procedure. Relevant labs, photos, and/or imaging studies have been reviewed. Correct side/site marked and visible. Medications required for procedure verified. No fire risk assessment and interventions applicable. No implant(s) inserted. Sign Out: SIGN OUT (optional for EMERGENT procedures): All specimen containers correctly labeled. All instruments, equipment, possible retained foreign bodies accounted for. No instruments, equipment or retained foreign bodies applicable. Post-procedure follow-up management communicated and Plan of Care Visit completed when applicable. Clau Cortes RN [facility]23 NoteHNO ID: [id number] Author: Hanna Graahm MD Service: ? Author Type: Physician Type: Progress Notes Filed: 05/24/2023 4:42 PM Note Text: Mike Monteiro 1955 REFERRING PHYSICIAN: Srinath Harman DO CHIEF COMPLAINT: Consult (FNA recommended Left ) HPI: The patient is a 68 year old male presents with abnormal ultrasound of thyroid He denies swallowing difficulties. He denies hoarseness. He denies exposure to unusual radiation. He denies previous thyroiditis or thyroid hormones use He notes no thyroid cancer in his family He is presently on plavix and aspirin for history of stroke US 11/17/2022 left thyroid nodule 2.6 cm PAST MEDICAL HISTORY Diagnosis Date Acid reflux Cerebellar stroke (HCC) Essential hypertension Skin cancer basil cell back History of right colon cancer PAST SURGICAL HISTORY Procedure Laterality Date APPENDECTOMY COLONOSCOPY SCREENING 2019 EGD W/O [facility] SPEC VARICIES INJ 2019 LAPAROSCOPIC HEMICOLECTOMY Bob PAST SURGICAL HISTORY OF 11/2022 heart watchman REPAIR INCISIONAL HERNIA,REDUCIBLE Bilateral Current Outpatient Medications Medication Sig clopidogrel (PLAVIX) 75 mg tablet Take 75 mg by mouth once daily. atorvastatin (LIPITOR) 20 mg tablet Take 20 mg by mouth once daily. DILT-XR 180 mg 24 hr capsule Take 180 mg by mouth once daily. losartan (COZAAR) 25 mg tablet Take 25 mg by mouth once daily. aspirin, enteric coated (ASPIRIN, ENTERIC COATED) 81 mg EC tablet Take 81 mg by mouth once daily. pantoprazole DR (PROTONIX) 40 mg tablet Take 1 tablet by mouth once daily. No current facility-administered medications for this visit. ALLERGIES: Patient has no known allergies. PERSONAL HISTORY: Social History Tobacco Use Smoking status: Every Day Packs/day: 1.00 Years: 45.00 Additional pack years: 0.00 Total pack years: 45.00 Types: Cigarettes Smokeless tobacco: Never Tobacco comments: Pt has cut back to 1/2 pack daily. Vaping Use Vaping Use: Never used Substance Use Topics Alcohol use: Never Drug use: Never FAMILY HISTORY Problem Relation Age of Onset Colon Cancer Father The review of systems data was entered by the nurse and reviewed by tx Nursing Notes: Nery Damon LPN 05/21/2023 4:07 PM Signed REVIEW OF SYSTEMS: General: The patient denies fatigue, denies weight loss, denies weight gain, denies feeling hot, and denies feelings of cold. Eyes: The patient denies glaucoma, denies eye injury/surgery, wears glasses or contacts. Ear/Nose/Throat: The patient denies allergies, denies hayfever, denies ear infections, and denies bloody noses. Cardiovascular: The patient denies chest pain, denies heart disease, notes high blood pressure,denies cardiac stent, denies prior heart attack, denies irregular heart beat, notes high cholesterol, denies poor circulation, denies heart failure, other cardiac issues, denies claudication, denies cold feet, denies peripheral arterial stent. Respiratory: The patient denies tuberculosis, denies pneumonia, denies frequent cough, denies pulmonary embolism, denies shortness of breath, and denies coughing up blood. Gastrointestinal: The patient denies difficulty swallowing, notes acid reflux, denies ulcers, denies vomiting, denies jaundice/hepatitis, denies gallbladder problems, denies black or tarry stools, denies hemorrhoids, denies bleeding from rectum, denies diverticulitis, denies constipation, denies diarrhea, denies loss of stool control, and denies hernias. Kidney/Bladder: The patient denies kidney stones, denies urine infections, and denies bloody urine. Skin: The patient notes a history of skin cancer, denies bleeding/changing moles, and denies a history of skin rash. Neurologic: The patient denies a history of epilepsy/convulsions, denies headaches, denies head/spinal injuries, and denies stroke/TIA. Psychiatric: The patient denies psychiatric medications, denies depression, and denies voices, denies substance abuse. Endocrine: The patient denies thyroid disorders, denies diabetes, and denies hormonal problems. Hematologic: The patient denies a history of bruising, denies bleeding, and denies anemia, denies blood clots. Infections: The patient denies a history of measles and mumps, denies rheumatic fever, and denies sexually transmitted diseases. Musculoskeletal: The patient denies back pain/injury, denies back problems, denies sciatica, denies knee/foot trouble, denies arthritis, or denies gout. When was patient's last Mammogram screening? N/A Last Colonoscopy: 2020 Nery Damon LPN PHYSICAL EXAMINATION: General: The patient is 68 year old male, well nourished, well hydrated in no acute distress. The patient is oriented to time, place, and person. VITALS: Blood pressure 132/70, pulse 101, temperature 36.6 ?C (97.9 ?F), height 177.8 cm (5' 10 ), weight 93 kg (205 lb), SpO2 93 %. Body mass index is 29.41 kg/m?. Head: Normal ceph (more content not included)...[facility] 05-21-2023 History of Present illness Narrative* Hanna Graham MD - 05/21/2023 4:17 PM EST Mike Monteiro 1955 REFERRING PHYSICIAN: Srinath Harman DO CHIEF COMPLAINT: Consult (FNA recommended Left ) HPI: The patient is a 68 year old male presents with abnormal ultrasound of thyroid He denies swallowing difficulties. He denies hoarseness. He denies exposure to unusual radiation. He denies previous thyroiditis or thyroid hormones use He notes no thyroid cancer in his family He is presently on plavix and aspirin for history of stroke US 11/17/2022 left thyroid nodule 2.6 cm PAST MEDICAL HISTORY Diagnosis Date Acid reflux Cerebellar stroke (HCC) Essential hypertension Skin cancer basil cell back History of right colon cancer PAST SURGICAL HISTORY Procedure Laterality Date APPENDECTOMY COLONOSCOPY SCREENING 2019 EGD W/O [facility] SPEC VARICIES INJ 2019 LAPAROSCOPIC HEMICOLECTOMY Bob PAST SURGICAL HISTORY OF 11/2022 heart watchman REPAIR INCISIONAL HERNIA,REDUCIBLE Bilateral Current Outpatient Medications Medication Sig clopidogrel (PLAVIX) 75 mg tablet Take 75 mg by mouth once daily. atorvastatin (LIPITOR) 20 mg tablet Take 20 mg by mouth once daily. DILT-XR 180 mg 24 hr capsule Take 180 mg by mouth once daily. losartan (COZAAR) 25 mg tablet Take 25 mg by mouth once daily. aspirin, enteric coated (ASPIRIN, ENTERIC COATED) 81 mg EC tablet Take 81 mg by mouth once daily. pantoprazole DR (PROTONIX) 40 mg tablet Take 1 tablet by mouth once daily. No current facility-administered medications for this visit. ALLERGIES: Patient has no known allergies. PERSONAL HISTORY: Social History Tobacco Use Smoking status: Every Day Packs/day: 1.00 Years: 45.00 Additional pack years: 0.00 Total pack years: 45.00 Types: Cigarettes Smokeless tobacco: Never Tobacco comments: Pt has cut back to 1/2 pack daily. Vaping Use Vaping Use: Never used Substance Use Topics Alcohol use: Never Drug use: Never FAMILY HISTORY Problem Relation Age of Onset Colon Cancer Father The review of systems data was entered by the nurse and reviewed by tx Nursing Notes: Nery DamonSUKHI 05/21/2023 4:07 PM Signed REVIEW OF SYSTEMS: General: The patient denies fatigue, denies weight loss, denies weight gain, denies feeling hot, and denies feelings of cold. Eyes: The patient denies glaucoma, denies eye injury/surgery, wears glasses or contacts. Ear/Nose/Throat: The patient denies allergies, denies hayfever, denies ear infections, and denies bloody noses. Cardiovascular: The patient denies chest pain, denies heart disease, notes high blood pressure,denies cardiac stent, denies prior heart attack, denies irregular heart beat, notes high cholesterol, denies poor circulation, denies heart failure, other cardiac issues, denies claudication, denies cold feet, denies peripheral arterial stent. Respiratory: The patient denies tuberculosis, denies pneumonia, denies frequent cough, denies pulmonary embolism, denies shortness of breath, and denies coughing up blood. Gastrointestinal: The patient denies difficulty swallowing, notes acid reflux, denies ulcers, denies vomiting, denies jaundice/hepatitis, denies gallbladder problems, denies black or tarry stools, denies hemorrhoids, denies bleeding from rectum, denies diverticulitis, denies constipation, denies diarrhea, denies loss of stool control, and denies hernias. Kidney/Bladder: The patient denies kidney stones, denies urine infections, and denies bloody urine. Skin: The patient notes a history of skin cancer, denies bleeding/changing moles, and denies a history of skin rash. Neurologic: The patient denies a history of epilepsy/convulsions, denies headaches, denies head/spinal injuries, and denies stroke/TIA. Psychiatric: The patient denies psychiatric medications, denies depression, and denies voices, denies substance abuse. Endocrine: The patient denies thyroid disorders, denies diabetes, and denies hormonal problems. Hematologic: The patient denies a history of bruising, denies bleeding, and denies anemia, denies blood clots. Infections: The patient denies a history of measles and mumps, denies rheumatic fever, and denies sexually transmitted diseases. Musculoskeletal: The patient denies back pain/injury, denies back problems, denies sciatica, deniesknee/foot trouble, denies arthritis, or denies gout. When was patient's last Mammogram screening? N/A Last Colonoscopy: 2020 Nery Damon LPN PHYSICAL EXAMINATION: General: The patient is 68 year old male, well nourished, well hydrated in no acute distress. The patient is oriented to time, place, and person. VITALS: Blood pressure 132/70, pulse 101, temperature 36.6 C (97.9 F), height 177.8 cm (5' 10 ), weight 93 kg (205 lb), SpO2 93 %. Body mass index is 29.41 kg/m . Head: Normal cephalic, atraumatic Eyes: pupils are equally round, sclera are clear/anicteric Neck is supple with no tracheal deviation Respiratory: Normal respiratory excursion and pattern. Abdominal exam: benign Extremities: no clubbing, cyanosis or edema. Neuro: non focal Psych: normal mood Assessment IMPRESSION: abnormal ultrasound of thyroid PLAN: I have discussed the above with the patient. I have offered US guided FNA of left thyroid nodule. I have explained the procedure to the patient. I have counseled the patient as to the risks of the procedure, including but not limited to: infection, bleeding, injury to any blood vessels/nerves, scar tissue, wound infections, complications of anesthesia, etc. - the patient understands. The patient wishes to proceed. I have answered all questions to the patient s satisfaction and the patient has no further questions. I have confirmed and edited as necessary, the PFSH and ROS obtained by others. Consultation requested by Dr. Srinath Harman for an opinion regarding patient's abnormal ultrasound of thyroid. My final recommendations will be communicated back to the requesting physician by way of shared Medical record or letter to requesting physician via US mail. . Diagnoses: (R93.89) Abnormal ultrasound of thyroid gland (primary encounter diagnosis) (Z79.02) Antiplatelet or antithrombotic long-term use Medical Decision Making: Problems: Moderate: New problem with uncertain prognosis Data: Unique test result(s) reviewed: 1 Risk: Low: Low risk from testing/treatment Medical Decision Making Level: 3 - Low Hanna Graham MD documented [facility] Nurse Note* Nery DamonSUKHI - 05/21/2023 4:02 PM EST REVIEW OF SYSTEMS: General: The patient denies fatigue, denies weight loss, denies weight gain, denies feeling hot, and denies feelings of cold. Eyes: The patient denies glaucoma, denies eye injury/surgery, wears glasses or contacts. Ear/Nose/Throat: The patient denies allergies, denies hayfever, denies ear infections, and denies bloody noses. Cardiovascular: The patient denies chest pain, denies heart disease, notes high blood pressure,denies cardiac stent, denies prior heart attack, denies irregular heart beat, notes high cholesterol, denies poor circulation, denies heart failure, other cardiac issues, denies claudication, denies cold feet, denies peripheral arterial stent. Respiratory: The patient denies tuberculosis, denies pneumonia, denies frequent cough, denies pulmonary embolism, denies shortness of breath, and denies coughing up blood. Gastrointestinal: The patient denies difficulty swallowing, notes acid reflux, denies ulcers, denies vomiting, denies jaundice/hepatitis, denies gallbladder problems, denies black or tarry stools, denies hemorrhoids, denies bleeding from rectum, denies diverticulitis, denies constipation, denies diarrhea, denies loss of stool control, and denies hernias. Kidney/Bladder: The patient denies kidney stones, denies urine infections, and denies bloody urine. Skin: The patient notes a history of skin cancer, denies bleeding/changing moles, and denies a history of skin rash. Neurologic: The patient denies a history of epilepsy/convulsions, denies headaches, denies head/spinal injuries, and denies stroke/TIA. Psychiatric: The patient denies psychiatric medications, denies depression, and denies voices, denies substance abuse. Endocrine: The patient denies thyroid disorders, denies diabetes, and denies hormonal problems. Hematologic: The patient denies a history of bruising, denies bleeding, and denies anemia, denies blood clots. Infections: The patient denies a history of measles and mumps, denies rheumatic fever, and denies sexually transmitted diseases. Musculoskeletal: The patient denies back pain/injury, denies back problems, denies sciatica, deniesknee/foot trouble, denies arthritis, or denies gout. When was patient's last Mammogram screening? N/A Last Colonoscopy: 2020 Nery Damon LPN [facility] NoteHNO ID: [id number] Author: Srinath Harman, DO Service: ? Author Type: Physician Type: Progress Notes Filed: 05/18/2023 12:44 PM Note Text: Oncologic problem: 1) Cancer of ascending colon (cecum) 2) Melanoma in situ (back/trunk) HPI: The patient is a 68-year-old male with history of HTN, melanoma in situ (excised locally in August, by Dr. Palmer) and 30+ year smoker who presented with upper abdominal pain and chronic cholecystitis. He also noted recurrent rectal bleeding on and off for 2 years prior to presentation. He underwent a diagnostic colonoscopy on 11/01/2020. Polypoid lesion in the cecum biopsy positive for invasive poorly differentiated adenocarcinoma with signet ring features and mucinous differentiation. Subsequent CT scan of the abdomen pelvis showed no evidence of metastatic disease. Baseline CEA was 132.8 ng/mL. Liver function was normal with a moderate anemia. He had no chest pain, cough, shortness of breath or hemoptysis. CT A/P 11/10/2020: Infiltrative mucosal lesion at the ileocecal valve and cecum with mucosal thickening of the terminal ileum at the valve was identified. Prostate was noted to impress the base of the bladder measuring 4.8 x 4.2 x 5.4 cm. Calcification noted in the mid prostate. Degenerative changes of the lumbar spine with Schmorl's nodes present at L3 and L4. CT chest 11/24/2020: Interpreted with 2 nodular foci in the right lung, one in the upper lobe and one in the lower lobe. There was nonspecific paratracheal adenopathy with a subcarinal mass/lymph node measuring 5 x 3.3 cm. He underwent a successful right hemicolectomy on December 02, 2020. He was told 28 lymph nodes were negative and the surgical margins. I cannot find documentation of this in the chart. Bronchoscopy 01/2021. TBNA 7 and 4R negative. PET scan 03/15/2021. YONY. Stroke (10/2021 on ASA and apixaban); found to have atrial fibrillation. He never had symptoms. Only residual symptom was mild word finding difficulty. Had Watchman procedure. On apixaban 45 days post procedure. Was told to defer colonoscopy last fall due to being on apixaban. Occasional rectal bleeding. Dr. Terry's office aware. Presents for ongoing oncologic management. Interim history: Had muscle stiffness on apixaban. Resolved after stopping. No on ASA and clopidogrel. Was tole in NSR. Hasn't been able to get colonoscopy due to DAPT. Has appointment with assistant sales director early June. Still smoking about 1/2 to 3/4 ppd. Occasional cough. No hemoptysis. Denies chest pain. No shortness of breath at rest or with moderate exertion. Increase in PSA. Saw Dr. Huber. Scheduled for MRI. No GI symptoms. Saw Dr. Palmer last week. Stage I melanoma removed from left flank area. PMH, medications and allergies personally reviewed by me today. Any changes documented in appropriate section. ROS: Constitutional: Denies episodes of fever and night sweats. Not significantly fatigued. Normal appetite. Neuro: Denies FRIEND, vertigo, dizziness and imbalance. Denies symptoms of neuropathy. HEENT: No recent change in voice, vision or hearing. Resp: See HPI. CVS: Denies exertional chest pain, PND, orthopnea and LE edema. GI: Denies dysgeusia. Denies symptoms of stomatitis. Denies dysphagia and odynophagia. Denies reflux, n/v, change in bowel habits and abdominal pain. : Denies dysuria or gross hematuria. Occasionally one episode nocturia. Endo: Denies hot flashes. Denies polyuria and polydipsia. Denies heat and cold intolerance. Musculoskeletal: Chronic left knee pain. Derm: Denies rash. Denies jaundice and diffuse pruritis. Heme: Denies unusual bleeding and unexplained bruising. Psych: Normal mood. PHYSICAL EXAM: Vitals: Blood pressure 164/81, pulse 82, temperature 36.9 ?C (98.4 ?F), temperature source Temporal, height 175.9 cm (5' 9.25 ), weight 92.3 kg (203 lb 8 oz), SpO2 95 %. Well-appearing and in no acute distress. EYES: Sclerae are anicteric bilaterally. LYMPHATIC: There is no palpable cervical or supraclavicular adenopathy. RESPIRATORY: Inspiratory breath sounds are of normal intensity in all roman. No rales, wheezes or rhonchi. CARDIOVASCULAR: Rhythm is regular today. ABDOMEN: The abdomen is nondistended. Steri-streps left flank incision. No evidence of infection. Extremities: No swelling or edema. SKIN: No jaundice or rash. No petechiae. LABORATORY DATA: Component Latest Ref Rng AND Units 05/11/2023 WBC 3.70 - 11.00 k/uL 10.81 RBC 4.20 - 6.00 m/uL 5.22 Hemoglobin 13.0 - 17.0 g/dL 15.3 Hematocrit 39.0 - 51.0 % 45.4 MCV 80.0 - 100.0 fL 87.0 MCH 26.0 - 34.0 pg 29.3 MCHC 30.5 - 36.0 g/dL 33.7 RDW-CV 11.5 - 15.0 % 14.0 Platelet Count 150 - 400 k/uL 241 MPV 9.0 - 12.7 fL 10.0 NRBC /100 WBC 0.0 Absolute nRBC <0.01 k/uL <0.01 Neut% % 62.0 Abs Neut (ANC) 1.45 - 7.50 k/uL 6.70 Lymph% % 27.0 Abs Lymph 1.00 - 4.00 k/uL 2.92 Bates% % 7.0 Abs Bates <0.87 k/uL 0.76 (more content not included)...[facility] History of Present illness Narrative* Srinath Harman DO - 05/18/2023 10:19 AM EST Oncologic problem: 1) Cancer of ascending colon (cecum) 2) Melanoma in situ (back/trunk) HPI: The patient is a 68-year-old male with history of HTN, melanoma in situ (excised locally in August, by Dr. Palmer) and 30+ year smoker who presented with upper abdominal pain and chronic cholecystitis. He also noted recurrent rectal bleeding on and off for 2 years prior to presentation. He underwent a diagnostic colonoscopy on 11/01/2020. Polypoid lesion in the cecum biopsy positive forinvasive poorly differentiated adenocarcinoma with signet ring features and mucinous differentiation. Subsequent CT scan of the abdomen pelvis showed no evidence of metastatic disease. Baseline CEA was 132.8 ng/mL. Liver function was normal with a moderate anemia. He had no chest pain, cough, shortness of breath or hemoptysis. CT A/P 11/10/2020: Infiltrative mucosal lesion at the ileocecal valve and cecum with mucosal thickening of the terminal ileum at the valve was identified. Prostate was noted to impress the base of the bladder measuring4.8 x 4.2 x 5.4 cm. Calcification noted in the mid prostate. Degenerative changes of the lumbar spine with Schmorl's nodes present at L3 and L4. CT chest 11/24/2020: Interpreted with 2 nodular foci in the right lung, one in the upper lobe and one in the lower lobe.There was nonspecific paratracheal adenopathy with a subcarinal mass/lymph node measuring 5 x 3.3 cm. He underwent a successful right hemicolectomy on December 02, 2020. He was told 28 lymph nodes were negative and the surgical margins. I cannot find documentation of this in the chart. Bronchoscopy 01/2021. TBNA 7 and 4R negative. PET scan 03/15/2021. YONY. Stroke (10/2021 on ASA and apixaban); found to have atrial fibrillation. He never had symptoms. Onlyresidual symptom was mild word finding difficulty. Had Watchman procedure. On apixaban 45 days post procedure. Was told to defer colonoscopy last fall due to being on apixaban. Occasional rectal bleeding. Dr. Terry's office aware. Presents for ongoing oncologic management. Interim history: Had muscle stiffness on apixaban. Resolved after stopping. No on ASA and clopidogrel. Was tole in NSR. Hasn't been able to get colonoscopy due to DAPT. Has appointment with assistant sales director early June. Still smoking about 1/2 to 3/4 ppd. Occasional cough. No hemoptysis. Denies chest pain. No shortness of breath at rest or with moderate exertion. Increase in PSA. Saw Dr. Huber. Scheduled for MRI. No GI symptoms. Saw Dr. Palmer last week. Stage I melanoma removed from left flank area. PMH, medications and allergies personally reviewed by me today. Any changes documented in appropriate section. ROS: Constitutional: Denies episodes of fever and night sweats. Not significantly fatigued. Normal appetite. Neuro: Denies FRIEND, vertigo, dizziness and imbalance. Denies symptoms of neuropathy. HEENT: No recent change in voice, vision or hearing. Resp: See HPI. CVS: Denies exertional chest pain, PND, orthopnea and LE edema. GI: Denies dysgeusia. Denies symptoms of stomatitis. Denies dysphagia and odynophagia. Denies reflux, n/v, change in bowel habits and abdominal pain. : Denies dysuria or gross hematuria. Occasionally one episode nocturia. Endo: Denies hot flashes. Denies polyuria and polydipsia. Denies heat and cold intolerance. Musculoskeletal: Chronic left knee pain. Derm: Denies rash. Denies jaundice and diffuse pruritis. Heme: Denies unusual bleeding and unexplained bruising. Psych: Normal mood. PHYSICAL EXAM: Vitals: Blood pressure 164/81, pulse 82, temperature 36.9 C (98.4 F), temperature source Temporal, height 175.9 cm (5' 9.25 ), weight 92.3 kg (203 lb 8 oz), SpO2 95 %. Well-appearing and in no acute distress. EYES: Sclerae are anicteric bilaterally. LYMPHATIC: There is no palpable cervical or supraclavicular adenopathy. RESPIRATORY: Inspiratory breath sounds are of normal intensity in all roman. No rales, wheezes or rhonchi. CARDIOVASCULAR: Rhythm is regular today. ABDOMEN: The abdomen is nondistended. Steri-streps left flank incision. No evidence of infection. Extremities: No swelling or edema. SKIN: No jaundice or rash. No petechiae. LABORATORY DATA: Component Latest Ref Rng & Units 05/11/2023 WBC 3.70 - 11.00 k/uL 10.81 RBC 4.20 - 6.00 m/uL 5.22 Hemoglobin 13.0 - 17.0 g/dL 15.3 Hematocrit 39.0 - 51.0 % 45.4 MCV 80.0 - 100.0 fL 87.0 MCH 26.0 - 34.0 pg 29.3 MCHC 30.5 - 36.0 g/dL 33.7 RDW-CV 11.5 - 15.0 % 14.0 Platelet Count 150 - 400 k/uL 241 MPV 9.0 - 12.7 fL 10.0 NRBC /100 WBC 0.0 Absolute nRBC <0.01 k/uL <0.01 Neut% % 62.0 Abs Neut (ANC) 1.45 - 7.50 k/uL 6.70 Lymph% % 27.0 Abs Lymph 1.00 - 4.00 k/uL 2.92 Bates% % 7.0 Abs Bates <0.87 k/uL 0.76 Eosin% % 3.0 Abs Eosin <0.46 k/uL 0.32 Baso% % 0.0 Abs Baso <0.11 k/uL 0.00 [place]% % 1.0 Left Shift Present Platelet Estimate Adequate Red Cell Morph Reviewed: see results of individual morphologies Polychromasia Slight Ovalocytes Few DTYPE Manual Glucose 74 - 99 mg/dL 200 (H) BUN 9 - 24 mg/dL 14 Creatinine 0.73 - 1.22 mg/dL 0.74 Sodium 136 - 144 mmol/L 139 Potassium 3.7 - 5.1 mmol/L 3.6 (L) Chloride 97 - 105 mmol/L 108 (H) CO2 22 - 30 mmol/L 20 (L) Anion Gap 9 - 18 mmol/L 11 Calcium 8.5 - 10.2 mg/dL 9.0 eGFR >=60 mL/min/1.73m 99 Albumin 3.9 - 4.9 g/dL 4.0 Bilirubin, Total 0.2 - 1.3 mg/dL 0.6 Bilirubin, Conjug <0.2 mg/dL <0.2 Alkaline Phosphatase 38 - 113 U/L 179 (H) AST 14 - 40 U/L 11 (L) ALT 10 - 54 U/L 13 Protein, Total 6.3 - 8.0 g/dL 6.7 CEA <=2.9 ng/mL 5.3 (H) ASSESSMENT/PLAN: (C18.2) Malignant neoplasm of ascending colon (HCC) (primary encounter diagnosis) Assessment: -pT3 pN0 M0 stage IIA cancer of the cecum. -Baseline CEA 132.8 ng/mL. -Mild persistent elevation of CEA is stable and likely secondary to smoking. -Prior rectal bleeding stopped after d/c apixaban. -History and physical examination every 3-6 mo for 2 y, then every 6 mo for a total of 5 y; -CEA every 3-6 mo for 2 y, then every 6 mo for a total of 5 y -Chest/abdominal/pelvic CT every 6-12 mo (category 2B for frequency <12 mo) from date of surgeryfor a total of 5 y -Colonoscopy in 1 y after surgery except if no preoperative colonoscopy due to obstructing lesion, colonoscopy in 3-6 months. Plan: -Colonoscopy once has cardiology clearance. -Labs then OV in about 6 months. 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 -Has not had dermatologic follow-up in some time. -Recent stage I melanoma left flank excised? Plan: -Pathology report. (R91.1) Lung nodule Assessment: -Initial biopsy of mediastinal lymph nodes showed no evidence of malignancy. -CT chest reviewed. Stable nodules. -Again discussed it is imperative for him to quit smoking. He is not clearly psychologically motivated at this time. Plan: -Once 5 years out from colon cancer surveillance, annual low dose CT for lung cancer screening. (E04.1) Thyroid nodule Assessment: -Stable on current CT chest. Plan: -Referral to Dr. Graham for opinion on biopsy. (R97.20) Elevated prostate specific antigen (PSA) Assessment: -Observed to have enlarged prostate on previous CT scan. -No significant LUTS. Plan: -Has MRI prostate and follow up with Dr. Palumbo scheduled. (R74.8) Elevated alkaline phosphatase level Assessment: -Lower on most recent lab testing. Plan: -Monitor. Hyperglycemia. Assessment: -Blood glucose level was 200 mg/dL on nonfasting sample. Plan: -Follow-up with PCP for further testing including hemoglobin A1c. -I advised him to start some low intensity aerobic exercise such as walking on a daily basis. Portions of this documentation were copied and pasted from previous office visit notes in order to provide a cohesive continuity of the history. The note has been reviewed and edited and updated as necessary. I spent a total of 30 minutes on the date of the service which included preparing to see the patient, [id number] patient care, completing clinical documentation, obtaining and/or reviewing separately obtained history, performing a medically appropriate examination, counseling and educating the pat ient/family/caregiver, ordering medications, tests, or procedures, communicating with other HCPs (not separately reported), and communicating results to the patient/family/caregiver. Srinath Harman DO Cc: Dr. Dr. Alberto Terry. Dr. Enrike Palmer documented [facility] NoteHNO ID: [id number] Author: Rachel Alonzo RT(R) Service: ? Author Type: Chaplaincy Type: Progress Notes Filed: 05/11/2023 12:09 PM Note Text: Radiology Service Progress Note DATE OF SERVICE: May 11, 2023 TIME: 12:08 PM PATIENT IDENTITY VERIFICATION COMPLETED USING TWO (2) STANDARD IDENTIFIERS: Name and Date of confirmed by patient verbally. FALL SCREENING: Has the patient had 2 falls in the last year or 1 fall with injury or currently using an Ambulatory Assistive Device (Walker, Cane, Wheelchair, Crutches, etc.)? No PATIENT GENDER DATA: Male PATIENT RELEVANT IMPLANT DATA REVIEWED: Yes ALLERGIES: Reviewed and unchanged CONTRAST ALLERGY: NO. EXAM: CT -CONTRAST INDUCED NEPHROPATHY RISK FACTORS: Patient age > 60 years CREATININE: Creatinine Date Value Ref Range Status 05/11/2023 0.74 0.73 - 1.22 mg/dL Final 11/17/2022 0.85 0.73 - 1.22 mg/dL Final 04/06/2022 0.68 (L) 0.73 - 1.22 mg/dL Final Estimated Glomerular Filtration Rate Date Value Ref Range Status 05/11/2023 99 >=60 mL/min/1.73m? Final Comment: Estimated Glomerular Filtration Rate (eGFR) is calculated using the 2020 CKD-EPI creatinine equation. This equation utilizes serum creatinine, sex, and age as parameters. The creatinine assay has traceable calibration to isotope dilution-mass spectrometry. Refer to KDIGO guidelines for clinical interpretation. In patients with unstable renal function, e.g. those with acute kidney injury, the eGFR may not accurately reflect actual GFR. eGFR- Date Value Ref Range Status 06/20/2021 >60 Final P.O.C.T. RESULTS: POC done: Yes, See Lab Tab May 11, 2023 TREATMENT: N/A PERIPHERAL IV DATA: Ambulatory: A peripheral IV was started in the Left antecubital site with a Angio cath: 22 gauge. RADIOLOGY DEPARTMENT: CT; Exam(s) Completed: Chest Abdomen Pelvis SIGNATURE: RT Lidia(R) PATIENT NAME: Mike Monteiro DATE: May 11, 2023 TIME: 12:08 [facility]05-23-2023 NoteHNO ID: [id number] Author: Iesha Marroquin APRN.TAL Service: ? Author Type: Nurse Practitioner Type: Progress Notes Filed: 11/21/2022 11:51 AM Note Text: Scheduling: Clinical Triage Patient Name: Mike Monteiro Patient was verified by: Name/Date of Triage process was used for: patient complaint of Thyroid nodule Symptoms: [facility] Clinical Triage Pool message for consult to General Surgery for a thyroid nodule. 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 Appointment was scheduled with Dr. Graham. Iesha Marroquin APRN.COMMERCIAL LENDING ASSISTANT November 21, 2022 11:51 [facility]05-15-2023 Miscellaneous Notes* Telephone Encounter - Marta Zavaleta - 11/13/2022 1:27 PM EDT Message relayed. US and Lab scheduled. * Telephone Encounter - Ada Melvin LPN - 11/13/2022 9:50 AM EDT Left message for pt.to contact office concerning Dr. Harman notation. Ada Melvin LPN * Telephone Encounter - Srinath Harman DO - 11/11/2022 12:01 PM EDT Let him know that when I was completing my note on him I did some more research into his case. The CT scan he had in June of his chest showed a thyroid nodule. I have ordered an ultrasound of histhyroid to further evaluate that. Likely will be benign but needs to be evaluated. Also I added on some additional lab work to further evaluate a mild increase in alkaline phosphatase he had on his lab work done in August at his PCPs office. Srinath Harman DO documented in this [facility]05-[facility]23 NoteHNO ID: [id number] Author: Srinath Harman DO Service: ? Author Type: Physician Type: Progress Notes Filed: 11/11/2022 12:01 PM Note Text: Oncologic problem: 1) Cancer of ascending colon (cecum) 2) Melanoma in situ (back/trunk) Per Dr. Pond's most recent note, reviewed and edited by me. HPI: The patient is a 67-year-old male with history of HTN, melanoma in situ (excised locally in August, by Dr. Palmer) and 30+ year smoker who presented with upper abdominal pain and chronic cholecystitis. He also noted recurrent rectal bleeding on and off for 2 years prior to presentation. He underwent a diagnostic colonoscopy on 11/01/2020. Polypoid lesion in the cecum biopsy positive for invasive poorly differentiated adenocarcinoma with signet ring features and mucinous differentiation. Subsequent CT scan of the abdomen pelvis showed no evidence of metastatic disease. Baseline CEA was 132.8 ng/mL. Liver function was normal with a moderate anemia. He had no chest pain, cough, shortness of breath or hemoptysis. CT A/P 11/10/2020: Infiltrative mucosal lesion at the ileocecal valve and cecum with mucosal thickening of the terminal ileum at the valve was identified. Prostate was noted to impress the base of the bladder measuring 4.8 x 4.2 x 5.4 cm. Calcification noted in the mid prostate. Degenerative changes of the lumbar spine with Schmorl's nodes present at L3 and L4. CT chest 11/24/2020: Interpreted with 2 nodular foci in the right lung, one in the upper lobe and one in the lower lobe. There was nonspecific paratracheal adenopathy with a subcarinal mass/lymph node measuring 5 x 3.3 cm. He underwent a successful right hemicolectomy on December 02, 2020. He was told 28 lymph nodes were negative and the surgical margins. I cannot find documentation of this in the chart. Bronchoscopy 01/2021. TBNA 7 and 4R negative. PET scan 03/15/2021. YONY. Presents for ongoing oncologic management. Interim history: Stroke (10/2021 on ASA and apixaban); found to have atrial fibrillation. He never had symptoms. Only residual symptom is mild word finding difficulty. Had Watchman procedure 2 weeks ago. Needs to be on apixaban 45 days post procedure. Was told to defer colonoscopy last fall due to being on apixaban. Occasional rectal bleeding. Dr. Terry's office aware. Still smoking about 1/2 to 3/4 ppd. Occasional cough. No hemoptysis. Denies chest pain. No shortness of breath at rest or with moderate exertion. Recent increase in PSA and currently has appointment with Dr. Huber. PMH, medications and allergies personally reviewed by me today. Any changes documented in appropriate section. ROS: Constitutional: Denies episodes of fever and night sweats. Not significantly fatigued. Normal appetite. Neuro: Denies FRIEND, vertigo, dizziness and imbalance. Denies symptoms of neuropathy. HEENT: No recent change in voice, vision or hearing. Resp: See HPI. CVS: Denies exertional chest pain, PND, orthopnea and LE edema. GI: Denies dysgeusia. Denies symptoms of stomatitis. Denies dysphagia and odynophagia. Denies reflux, n/v, change in bowel habits and abdominal pain. : Denies dysuria or gross hematuria. Occasionally one episode nocturia. Endo: Denies hot flashes. Denies polyuria and polydipsia. Denies heat and cold intolerance. Musculoskeletal: Chronic left knee pain. Derm: Denies rash. Denies jaundice and diffuse pruritis. Heme: Denies unusual bleeding and unexplained bruising. Psych: Normal mood. PHYSICAL EXAM: Vitals: Blood pressure 137/84, pulse 93, temperature 36.8 ?C (98.2 ?F), temperature source Temporal, height 175.3 cm (5' 9 ), weight 90.7 kg (200 lb). Well-appearing and in no acute distress. EYES: Sclerae are anicteric bilaterally. LYMPHATIC: There is no palpable cervical or supraclavicular adenopathy. RESPIRATORY: Inspiratory breath sounds are of normal intensity in all roman. No rales, wheezes or rhonchi. CARDIOVASCULAR: Rhythm is regular on today's exam. ABDOMEN: The abdomen is nondistended. No organomegaly. No tenderness. Extremities: No swelling or edema. SKIN: No jaundice or rash. No petechiae. NEUROLOGIC: digital composer II-XII are grossly intact. Very mild expressive aphasia. No focal motor weakness. LABORATORY DATA: Outside labs dated 09/06/2022 from [facility] included CBC demonstrating a white count of 10,800. No differential. Hemoglobin 15.5 g/dL. Hematocrit 46%. Platelet count 239,000. Chemistry panel significant for alk phos elevated 179 units/L. Total bilirubin 0.6 mg/dL. AST and ALT normal. PSA 6.52 ng/mL. Component Latest Ref Rng AND Units 06/20/2021 10/05/2021 01/04/2022 04/06/2022 10/17/2022 CEA <=2.9 ng/mL 5.9 (H) 4.6 (H) 5.4 (H) 4.8 (H) 4.7 (H) IMAGING: CT chest 06/12/2022: IMPRESSION: 1. Bilateral pulmonary nodules measuring up to 7 mm in diameter are stable in size since the chest CT dated 11/24/2020, probably benign given greater than 18 mon (more content not included)...[facility] 11-08-2022 History of Present illness Narrative* Srinath Harman, DO - 11/08/2022 4:20 PM EDT Oncologic problem: 1) Cancer of ascending colon (cecum) 2) Melanoma in situ (back/trunk) Per Dr. Pond's most recent note, reviewed and edited by me. HPI: The patient is a 67-year-old male with history of HTN, melanoma in situ (excised locally in August, by Dr. Palmer) and 30+ year smoker who presented with upper abdominal pain and chronic cholecystitis. He also noted recurrent rectal bleeding on and off for 2 years prior to presentation. He underwent a diagnostic colonoscopy on 11/01/2020. Polypoid lesion in the cecum biopsy positive forinvasive poorly differentiated adenocarcinoma with signet ring features and mucinous differentiation. Subsequent CT scan of the abdomen pelvis showed no evidence of metastatic disease. Baseline CEA was 132.8 ng/mL. Liver function was normal with a moderate anemia. He had no chest pain, cough, shortness of breath or hemoptysis. CT A/P 11/10/2020: Infiltrative mucosal lesion at the ileocecal valve and cecum with mucosal thickening of the terminal ileum at the valve was identified. Prostate was noted to impress the base of the bladder measuring4.8 x 4.2 x 5.4 cm. Calcification noted in the mid prostate. Degenerative changes of the lumbar spine with Schmorl's nodes present at L3 and L4. CT chest 11/24/2020: Interpreted with 2 nodular foci in the right lung, one in the upper lobe and one in the lower lobe.There was nonspecific paratracheal adenopathy with a subcarinal mass/lymph node measuring 5 x 3.3 cm. He underwent a successful right hemicolectomy on December 02, 2020. He was told 28 lymph nodes were negative and the surgical margins. I cannot find documentation of this in the chart. Bronchoscopy 01/2021. TBNA 7 and 4R negative. PET scan 03/15/2021. YONY. Presents for ongoing oncologic management. Interim history: Stroke (10/2021 on ASA and apixaban); found to have atrial fibrillation. He never had symptoms. Onlyresidual symptom is mild word finding difficulty. Had Watchman procedure 2 weeks ago. Needs to be on apixaban 45 days post procedure. Was told to defer colonoscopy last fall due to being on apixaban. Occasional rectal bleeding. Dr. Terry's office aware. Still smoking about 1/2 to 3/4 ppd. Occasional cough. No hemoptysis. Denies chest pain. No shortness of breath at rest or with moderate exertion. Recent increase in PSA and currently has appointment with Dr. Huber. PMH, medications and allergies personally reviewed by me today. Any changes documented in appropriate section. ROS: Constitutional: Denies episodes of fever and night sweats. Not significantly fatigued. Normal appetite. Neuro: Denies FRIEND, vertigo, dizziness and imbalance. Denies symptoms of neuropathy. HEENT: No recent change in voice, vision or hearing. Resp: See HPI. CVS: Denies exertional chest pain, PND, orthopnea and LE edema. GI: Denies dysgeusia. Denies symptoms of stomatitis. Denies dysphagia and odynophagia. Denies reflux, n/v, change in bowel habits and abdominal pain. : Denies dysuria or gross hematuria. Occasionally one episode nocturia. Endo: Denies hot flashes. Denies polyuria and polydipsia. Denies heat and cold intolerance. Musculoskeletal: Chronic left knee pain. Derm: Denies rash. Denies jaundice and diffuse pruritis. Heme: Denies unusual bleeding and unexplained bruising. Psych: Normal mood. PHYSICAL EXAM: Vitals: Blood pressure 137/84, pulse 93, temperature 36.8 C (98.2 F), temperature source Temporal, height 175.3 cm (5' 9 ), weight 90.7 kg (200 lb). Well-appearing and in no acute distress. EYES: Sclerae are anicteric bilaterally. LYMPHATIC: There is no palpable cervical or supraclavicular adenopathy. RESPIRATORY: Inspiratory breath sounds are of normal intensity in all roman. No rales, wheezes or rhonchi. CARDIOVASCULAR: Rhythm is regular on today's exam. ABDOMEN: The abdomen is nondistended. No organomegaly. No tenderness. Extremities: No swelling or edema. SKIN: No jaundice or rash. No petechiae. NEUROLOGIC: digital composer II-XII are grossly intact. Very mild expressive aphasia. No focal motor weakness. LABORATORY DATA: Outside labs dated 09/06/2022 from [facility] included CBC demonstrating a white count of 10,800. No differential. Hemoglobin 15.5 g/dL. Hematocrit 46%. Platelet count 239,000. Chemistry panel significant for alk phos elevated 179 units/L. Total bilirubin 0.6 mg/dL. AST and ALT normal. PSA 6.52 ng/mL. Component Latest Ref Rng & Units 06/20/2021 10/05/2021 01/04/2022 04/06/2022 10/17/2022 CEA <=2.9 ng/mL 5.9 (H) 4.6 (H) 5.4 (H) 4.8 (H) 4.7 (H) IMAGING: CT chest 06/12/2022: IMPRESSION: 1. Bilateral pulmonary nodules measuring up to 7 mm in diameter are stable in size since the chest CT dated 11/24/2020, probably benign given greater than 18 months of stability. No new or enlarging pulmonary nodule. 2. Mild upper lobe predominant centrilobular emphysema. 3. Mild mediastinal and right hilar lymphadenopathy is unchanged since the prior chest CT from 08/08/2021, nonspecific although probably benign/reactive given stability. 4. Unchanged indeterminate 1.8 cm hypodense left thyroid nodule, which could be further assessed with thyroid ultrasound. Lung parenchyma and airways: There is mild upper lobe predominant centrilobular emphysema, which is associated with bronchial wall thickening. There are scattered small pulmonary nodules. For reference a 4 mm right middle lobe nodule, image 130; a 7 mm right lower lobe nodule, image 129; a 5 mm left upper lobe nodule, image 108; a 2 mm left lower lobe nodule, image 123; and a 6 mm left lower lobe nodule, image 126 remain stable in size since the chest CT from 11/24/2020. A calcified posterior right upper lobe nodule, image 53, is consistent with a granuloma. No new or enlarging pulmonary nodule. Stable mild biapical opacities which are unchanged since 11/24/2020. No consolidation or pulmonary edema. Mosaic attenuation lung parenchymal is probably due to small area disease. The central airways are patent without suspicious endobronchial lesion. Pleural space: No pleural effusion, pleural thickening, or pneumothorax. Lower neck, lymph nodes, and mediastinum: A 1.8 cm hypodense left thyroid nodule, image 24 appears unchanged since the prior chest CT from 08/08/2021. No supraclavicular or axillary lymphadenopathy. A mildly enlarged right paratracheal lymph node, image 72 with a fatty hilum measuring 1.2 cm in short axis is stable in size since 08/08/2021. A 0.9 cm short axis subcarinal lymph node, image 91, is stable in size since 08/08/2021. An enlarged right hilar lymph node, image 19 measuring 1.3 cm in short axis is stable. No new mediastinal or hilar lymphadenopathy. A small hiatal hernia is present. Heart, pericardium, and thoracic vessels: Mild to moderate atherosclerosis is present within the thoracic aorta which is nondilated measuring 3.5 cm diameter in the mid ascending segment. Mild aortic valve calcification is present. The main pulmonary artery is normal in caliber. Moderate severity scattered coronary artery atherosclerotic calcifications are present however, this exam is not optimized for coronary artery assessment. Heart size is normal. No pericardial effusion. Bones and soft tissues: No destructive lytic or blastic bone lesion. Mild multilevel endplate degenerative changes are present throughout the thoracic spine. Upper abdomen: A hyperdense 1.1 cm right renal lesion, image 198 is unchanged and probably a hemorrhagic cyst. A low-attenuation right renal lesion, image 226 is probably a cyst, stable. Otherwise, the imaged solid abdominal organs are unremarkable in this noncontrast exam. Mild to moderate atherosclerosis is present in the imaged proximal abdominal aorta. Apparent thickening of the wall of the transverse colon is probably due to nondistention. Rehabilitation Inspector (topogram) images: No additional findings. 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 -Baseline CEA 132.8 ng/mL. -Mild persistent elevation of CEA secondary to smoking. -Has not had repeat colonoscopy since surgery. -Recent rectal bleeding while on apixaban for atrial fibrillation status post Watchman procedure. Plan: -He needs repeat colonoscopy. I will contact his assistant sales director and surgeon to see if this can be done soon or if it has to wait until he is off apixaban. -Otherwise CBC/BMP/liver panel/CEA CT C/A/P followed by office visit in 6 months. 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 -Has not had dermatologic follow-up in some time. Plan: -I advised him to contact Dr. Palmer for follow-up exam. He expressed an understanding and agreement. (R91.1) Lung nodule Assessment: -Mediastinal and subcarinal adenopathy in an active tobacco use. -Initial biopsy of mediastinal lymph nodes showed no evidence of malignancy. -CT chest 06/2022 stable findings. -Again discussed it is imperative for him to quit smoking. He is not clearly psychologically motivated at this time. Plan: -Repeat CT as part of colon cancer surveillance as above. (E04.1) Thyroid nodule Assessment: -This has not been previously evaluated as far as I know. Plan: -Ultrasound thyroid with potential referral to general surgery following. (R97.20) Elevated prostate specific antigen (PSA) Assessment: -Observed to have enlarged prostate on previous CT scan. -No significant LUTS. Plan: -He has consultation already scheduled with Dr. Huber. (R74.8) Elevated alkaline phosphatase level Assessment: -Etiology not clear. Plan: -Repeat CMP when here for ultrasound of thyroid. Obtain fractionated alk phos. Bone scan if fraction of alk phos from bone elevated. Portions of this documentation were copied and pasted from previous office visit notes in order to provide a cohesive continuity of the history. The note has been reviewed and edited and updated as necessary. I spent a total of 40 minutes on the date of the service which included preparing to see the patient, [id number] patient care, obtaining and/or reviewing separately obtained history, performing a medically appropriate examination, counseling and educating the patient/family/caregiver, and communic ating results to the patient/family/caregiver. Srinath Harman DO Cc: Dr. Jovanny Terry. Dr. Enrike Palmer documented [facility]12[facility]22 NoteHNO ID: [id number] Author: Phyllis Saul PA-C Service: ? Author Type: Physician Work Ticket Distributor Type: Progress Notes Filed: 06/13/2022 11:20 AM Note Text: Received phone call from [employer] [facility] [employer] for approved CT chest scan (DOS 06/12/22). Auth is good from 06/12/22 - 12/11/22. [id number] and [id number]. Called and left VM on pt's dedicated phone that his CT scan had been approved retrospectively. [facility] of Present illness Narrative* Phyllis Saul PA-C - 06/13/2022 11:17 AM EST Received phone call from [employer] [facility] [employer] for approved CT chest scan (DOS 06/12/22). Auth is good from 06/12/22 - 12/11/22. [id number] and [id number]. Called and left VM on pt's dedicated phone that his CT scan had been approved retrospectively. Phyllis Saul PA-C documented in this encounterL[facility]12-12-2022 NoteHNO ID: [id number] Author: Milena Monge MD Service: ? Author Type: Physician Type: Progress Notes Filed: 06/19/2022 12:03 PM Note Text: Mike Monteiro is a 67 year old male here for follow appointment for Lung nodule/s and lymphadenopathy Since the prior visit, he has been doing well. Had a CVA in October 2021. Was complaining of double vision, nausea, and headache x 4-5 months. One morning he woke up and was slumped over and weak. He was found to have a cerebellar stroke and was in atrial fibrillation. Denies any chest pain, shortness of breath, nausea/vomiting, fever/chills, cough, wheezing, weight loss, or hemoptysis PAST MEDICAL HISTORY Diagnosis Date Cerebellar stroke (HCC) REVIEW OF SYSTEMS GENERAL: No weight loss, malaise or fevers. HEENT: Negative for frequent or significant headaches, No changes in hearing or vision, no nose bleeds or other nasal problems RESPIRATORY: Negative for cough, wheezing or shortness of breath. CARDIOVASCULAR: Negative for chest pain, leg swelling or palpitations. MUSCULOSKELETAL: Negative for joint pain or swelling, back pain or muscle pain. The remainder of the review of systems is negative. PHYSICAL EXAMINATION: BP 152/71 Pulse 63 Temp 97.1 Resp 18 Ht 5' 9 (1.75m) Wt 195 lb (88.5kg) SpO2 94% BMI 28.78 kg/(m2). General appearance: well appearing, alert, and in no acute distress Nose/Sinuses: Negative Oropharynx: Lips, mucosa, and tongue normal, teeth and gums normal, oropharynx normal Respiratory: lungs clear to auscultation no wheezing or rhonchi Cardiovascular: Negative. RRR without murmur, gallop, or rubs. No ectopy Gastrointestinal: Abdomen soft, non-tender. Bowel sounds normal. No masses, organomegaly and Aorta WNL, no bruit Musculoskeletal: Extremities normal. No deformities, edema, or skin discoloration. Good capillary refill. DATA: I personally reviewed all labs, radiographs and PFTs noted CT Chest: PERSONALLY REVIEWED BY MYSELF AND WITH PATIENT IMPRESSION: 1. Bilateral pulmonary nodules measuring up to 7 mm in diameter are stable in size since the chest CT dated 11/24/2020, probably benign given greater than 18 months of stability. No new or enlarging pulmonary nodule. 2. Mild upper lobe predominant centrilobular emphysema. 3. Mild mediastinal and right hilar lymphadenopathy is unchanged since the prior chest CT from 08/08/2021, nonspecific although probably benign/reactive given stability. 4. Unchanged indeterminate 1.8 cm hypodense left thyroid nodule, which could be further assessed with thyroid ultrasound. Creative Services Specialist: [facility] Transcribe Date/Time: Jun 12 2022 4:15P Dictated by : DEBO HUA MD This examination was interpreted and the report reviewed and electronically signed by: DEBO HUA MD on Jun 12 2022 4:42PM EST Results-Findings * * *Final Report* * * DATE OF EXAM: Jun 12 2022 11:23AM [facility] 0541 - CT CHEST WO IVCON / PROCEDURE REASON: Lung nodules * * * * Physician Interpretation * * * * EXAMINATION: CHEST CT WITHOUT CONTRAST CLINICAL HISTORY: 67-year-old male reported current smoker with history of pulmonary nodules. Technique: Spiral CT acquisition of the chest from the thoracic inlet to the upper abdomen without contrast. MQ: CTCWO_6 CT Radiation dose: Integrated Dose-length product (DLP) for this visit = 322 mGy*cm CT Dose Reduction Employed: Automated exposure control (AEC) Comparison: Chest CT exams dated 08/08/2021 and 11/24/2020; PET/CT dated 03/15/2021 RESULT: Limitations: None. Lines, tubes, and devices: None. Lung parenchyma and airways: There is mild upper lobe predominant centrilobular emphysema, which is associated with bronchial wall thickening. There are scattered small pulmonary nodules. For reference a 4 mm right middle lobe nodule, image 130; a 7 mm right lower lobe nodule, image 129; a 5 mm left upper lobe nodule, image 108; a 2 mm left lower lobe nodule, image 123; and a 6 mm left lower lobe nodule, image 126 remain stable in size since the chest CT from 11/24/2020. A calcified posterior right upper lobe nodule, image 53, is consistent with a granuloma. No new or enlarging pulmonary nodule. Stable mild biapical opacities which are unchanged since 11/24/2020. No consolidation or pulmonary edema. Mosaic attenuation lung parenchymal is probably due to small area disease. The central airways are patent without suspicious endobronchial lesion. Pleural space: No pleural effusion, pleural thickening, or pneumothorax. Lower neck, lymph nodes, and mediastinum: A 1.8 cm hypodense left thyroid nodule, image 24 appears unchanged since the prior chest CT from 08/08/2021. No supraclavicular or axillary lymphadenopathy. A mildly enlarged right paratracheal lymph node, image 72 with a fatty hilum measuring 1.2 cm in short axis is stable in size since 08/08/2021. A 0.9 cm short axis subcarinal lymph node, image 91, is sta (more content not included)...[facility]12-12-2022 NoteHNO ID: [id number] Author: Payton Ramirez RT(R) Service: Radiology Author Type: Technologist Type: Progress Notes Filed: 06/12/2022 11:23 AM Note Text: Radiology Service Progress Note PATIENT NAME: Mike Monteiro DATE OF SERVICE: June 12, 2022 TIME: 11:19 AM PATIENT IDENTITY VERIFICATION COMPLETED USING TWO (2) IDENTIFIERS: Name and Date of confirmed by patient verbally and Name and Date of confirmed by identification band. FALL SCREENING: Has the patient had 2 falls in the last year or 1 fall with injury or currently using an Ambulatory Assistive Device (Walker, Cane, Wheelchair, Crutches, etc.)? No PATIENT GENDER DATA: Male PATIENT RELEVANT IMPLANT DATA REVIEWED: Yes RADIOLOGY DEPARTMENT: CT; Exam(s) Completed: Chest PERIPHERAL IV DATA: Not applicable SIGNED BY: Payton Ramirez, RT(R) June 12, 2022 11:19 [facility]12-12-2022 History of Present illness Narrative* Milena Monge MD - 06/12/2022 12:49 PM EST Mike Monteiro is a 67 year old male here for follow appointment for Lung nodule/s and lymphadenopathy Since the prior visit, he has been doing well. Had a CVA in October 2021. Was complaining of double vision, nausea, and headache x 4-5 months. One morning he woke up and was slumped over and weak. He was found to have a cerebellar stroke and was in atrial fibrillation. Denies any chest pain, shortness of breath, nausea/vomiting, fever/chills, cough, wheezing, weight loss, or hemoptysis PAST MEDICAL HISTORY Diagnosis Date Cerebellar stroke (HCC) REVIEW OF SYSTEMS GENERAL: No weight loss, malaise or fevers. HEENT: Negative for frequent or significant headaches, No changes in hearing or vision, no nose bleeds or other nasal problems RESPIRATORY: Negative for cough, wheezing or shortness of breath. CARDIOVASCULAR: Negative for chest pain, leg swelling or palpitations. MUSCULOSKELETAL: Negative for joint pain or swelling, back pain or muscle pain. The remainder of the review of systems is negative. PHYSICAL EXAMINATION: BP 152/71 Pulse 63 Temp 97.1 Resp 18 Ht 5' 9 (1.75m) Wt 195 lb (88.5kg) SpO2 94% BMI28.78 kg/(m^2). General appearance: well appearing, alert, and in no acute distress Nose/Sinuses: Negative Oropharynx: Lips, mucosa, and tongue normal, teeth and gums normal, oropharynx normal Respiratory: lungs clear to auscultation no wheezing or rhonchi Cardiovascular: Negative. RRR without murmur, gallop, or rubs. No ectopy Gastrointestinal: Abdomen soft, non-tender. Bowel sounds normal. No masses, organomegaly and Aorta WNL, no bruit Musculoskeletal: Extremities normal. No deformities, edema, or skin discoloration. Good capillary refill. DATA: I personally reviewed all labs, radiographs and PFTs noted CT Chest: PERSONALLY REVIEWED BY MYSELF AND WITH PATIENT IMPRESSION: 1. Bilateral pulmonary nodules measuring up to 7 mm in diameter are stable in size since the chest CT dated 11/24/2020, probably benign given greater than 18 months of stability. No new or enlarging pulmonary nodule. 2. Mild upper lobe predominant centrilobular emphysema. 3. Mild mediastinal and right hilar lymphadenopathy is unchanged since the prior chest CT from 08/08/2021, nonspecific although probably benign/reactive given stability. 4. Unchanged indeterminate 1.8 cm hypodense left thyroid nodule, which could be further assessed with thyroid ultrasound. Creative Services Specialist: [facility]ITALAnibal Transcribe Date/Time: Jun 12 2022 4:15P Dictated by : DEBO HUA MD This examination was interpreted and the report reviewed and electronically signed by: DEBO HUA MD on Jun 12 2022 4:42PM EST Results-Findings * * *Final Report* * * DATE OF EXAM: Jun 12 2022 11:23AM [facility] [place] 0541 - CT CHEST WO IVCON / PROCEDURE REASON: Lung nodules * * * * Physician Interpretation * * * * EXAMINATION: CHEST CT WITHOUT CONTRAST CLINICAL HISTORY: 67-year-old male reported current smoker with history of pulmonary nodules. Technique: Spiral CT acquisition of the chest from the thoracic inlet to the upper abdomen without contrast. MQ: CTCWO_6 CT Radiation dose: Integrated Dose-length product (DLP) for this visit = 322 mGy*cm CT Dose Reduction Employed: Automated exposure control (AEC) Comparison: Chest CT exams dated 08/08/2021 and 11/24/2020; PET/CT dated 03/15/2021 RESULT: Limitations: None. Lines, tubes, and devices: None. Lung parenchyma and airways: There is mild upper lobe predominant centrilobular emphysema, which is associated with bronchial wall thickening. There are scattered small pulmonary nodules. For reference a 4 mm right middle lobe nodule, image 130; a 7 mm right lower lobe nodule, image 129; a 5 mm left upper lobe nodule, image 108; a 2 mm left lower lobe nodule, image 123; and a 6 mm left lower lobe nodule, image 126 remain stable in size since the chest CT from 11/24/2020. A calcified posterior right upper lobe nodule, image 53, is consistent with a granuloma. No new or enlarging pulmonary nodule. Stable mild biapical opacities which are unchanged since 11/24/2020. No consolidation or pulmonary edema. Mosaic attenuation lung parenchymal is probably due to small area disease. The central airways are patent without suspicious endobronchial lesion. Pleural space: No pleural effusion, pleural thickening, or pneumothorax. Lower neck, lymph nodes, and mediastinum: A 1.8 cm hypodense left thyroid nodule, image 24 appears unchanged since the prior chest CT from 08/08/2021. No supraclavicular or axillary lymphadenopathy. A mildly enlarged right paratracheal lymph node, image 72 with a fatty hilum measuring 1.2 cm in short axis is stable in size since 08/08/2021. A 0.9 cm short axis subcarinal lymph node, image 91, is stable in size since 08/08/2021. An enlarged right hilar lymph node, image 19 measuring 1.3 cm in short axis is stable. No new mediastinal or hilar lymphadenopathy. A small hiatal hernia is present. Heart, pericardium, and thoracic vessels: Mild to moderate atherosclerosis is present within the thoracic aorta which is nondilated measuring 3.5 cm diameter in the mid ascending segment. Mild aortic valve calcification is present. The main pulmonary artery is normal in caliber. Moderate severity scattered coronary artery atherosclerotic calcifications are present however, this exam is not optimized for coronary artery assessment. Heart size is normal. No pericardial effusion. Bones and soft tissues: No destructive lytic or blastic bone lesion. Mild multilevel endplate degenerative changes are present throughout the thoracic spine. Upper abdomen: A hyperdense 1.1 cm right renal lesion, image 198 is unchanged and probably a hemorrhagic cyst. A low-attenuation right renal lesion, image 226 is probably a cyst, stable. Otherwise, the imaged solid abdominal organs are unremarkable in this noncontrast exam. Mild to moderate atherosclerosis is present in the imaged proximal abdominal aorta. Apparent thickening of the wall of the transverse colon is probably due to nondistention. Rehabilitation Inspector (topogram) images: No additional findings. A/ P 67 yo male with a diagnosis of stage II colon cancer s/p right hemicolectomy (lymph nodes and margins negative for a neoplasm) who was initially referred on 02/14/21 for enlarged lymph nodes. He had an EBUS bronchoscopy done at that time and the lymph node was a bronchogenic cyst which was drained -cytology was negative for malignant cells and cultures were negative. He presents today for repeat CT chest imaging. - Station 7 lymph node which was cystic and drained does not appear enlarged at this time. No intervention required. - He has multiple lung nodules which remain unchanged at this time RML - 4 mm RLL - 6 mm LLL - 6 mm LLL - 2 mm These were first noted on CT chest imaging on 11/24/20. At this time the recommendation is follow-upCT chest imaging in 1 year F/u 1 year - CT chest imaging in [place] followed by a virtual visit Milena Monge MD June 12, 2022 12:49 PM documented in this encounterL[facility]12-12-2022 History of Present illness Narrative* RT Marina(R) - 06/12/2022 12:00 PM EST Radiology Service Progress Note PATIENT NAME: Mike Monteiro DATE OF SERVICE: June 12, 2022 TIME: 11:19 AM PATIENT IDENTITY VERIFICATION COMPLETED USING TWO (2) IDENTIFIERS: Name and Date of confirmedby patient verbally and Name and Date of confirmed by identification band. FALL SCREENING: Has the patient had 2 falls in the last year or 1 fall with injury or currently using an Ambulatory Assistive Device (Walker, Cane, Wheelchair, Crutches, etc.)? No PATIENT GENDER DATA: Male PATIENT RELEVANT IMPLANT DATA REVIEWED: Yes RADIOLOGY DEPARTMENT: CT; Exam(s) Completed: Chest PERIPHERAL IV DATA: Not applicable SIGNED BY: RT Marina(R) June 12, 2022 11:19 AM documented in this encounterLima [facility]12-06-2022 NoteHNO ID: [id number] Author: Lisa Villar RN Service: ? Author Type: Registered Nurse Type: Progress Notes Filed: 06/06/2022 10:15 AM Note Text: IP Clinical Coordinator Pre-Visit Chart Review Date of Visit: 06/12/22 Type of Visit: Est Summary of Reason for Visit: Follow Up/ last visit 08/08/21 Needed Testing Prior to Visit: CT scheduled prior to visit (same day) Notes: Lisa GOODE, RN, CCRN-K [facility] History of Present illness Narrative* Lisa Villar RN - 06/06/2022 10:13 AM EST IP Clinical Coordinator Pre-Visit Chart Review Date of Visit: 06/12/22 Type of Visit: Est Summary of Reason for Visit: Follow Up/ last visit 08/08/21 Needed Testing Prior to Visit: CT scheduled prior to visit (same day) Notes: Lisa GOODE, RN, CCRN-K Interventional Pulmonary Clinical Coordinator documented in this encounterL[facility]12-01-2022 Miscellaneous Notes* Telephone Encounter - Janett Qureshi LPN - 06/01/2022 4:04 PM EST I spoke with the patient. He had one episode of blood in his stool back in April, nothing since. He started on Eliquis after his stroke in October/November 2021. Patient states Dr. Alberto Terry wanted to wait until August to repeat colonoscopy because of stroke and starting blood thinner. Patient states Dr. Alberto Terry is not aware of one-time episode of blood in stool in April. I advised patient to inform Dr. Alberto Terry of above. I will fax a copy of this note with Dr. Pond's recommendations to Dr. Jovanny Terry and Dr. Alberto Terry. Patient will also contact both physicians. Janett Qureshi LPN * Telephone Encounter - Kim Pond MD - 06/01/2022 3:[address] Terry could arrange for a barium enema at [facility]? His CT scan of the abdomen pelvis were normal in April 2022. Kim Pond MD * Telephone Encounter - Priya García Pss - 06/01/2022 3:18 PM EST Patient was advised by PCP to reach out to Dr Pond as he was to have a repeat colonoscopy but patient had a stroke in November and they have postponed colonoscopy due to stroke. Patient however passed blood on 04/[address] Terry thought there might be another test that could be ran since patient can nothave colonoscopy. Please advise patient if sooner appointment then September 2022 is needed. documented in this encounterLima [facility]10-12-2022 Miscellaneous Notes* Telephone Encounter - Chrystal Duncan LPN - 04/12/2022 1:52 PM EDT Pt will come in before his apt. Chrystal Duncan LPN * Telephone Encounter - Kim Pond MD - 04/12/2022 1:30 PM EDT He should get a chest x-ray today if possible before or after this visit. Orders already done. Kim Pond MD documented in this encounterLima [facility]10-06-2022 History of Present illness Narrative* Rachel Light, RT(R) - 04/06/2022 9:00 AM EDT Radiology Service Progress Note DATE OF SERVICE: April 06, 2022 TIME: 1:44 PM PATIENT IDENTITY VERIFICATION COMPLETED USING TWO (2) STANDARD IDENTIFIERS: Name and Date of confirmed by patient verbally. FALL SCREENING: Has the patient had 2 falls in the last year or 1 fall with injury or currently using an Ambulatory Assistive Device (Walker, Cane, Wheelchair, Crutches, etc.)? No PATIENT GENDER DATA: Male PATIENT RELEVANT IMPLANT DATA REVIEWED: Yes ALLERGIES: Reviewed and unchanged CONTRAST ALLERGY: NO. EXAM: CT -CONTRAST INDUCED NEPHROPATHY RISK FACTORS: Patient age > 60 years CREATININE: Creatinine Date Value Ref Range Status 04/06/2022 0.68 (L) 0.73 - 1.22 mg/dL Final 10/05/2021 0.81 0.73 - 1.22 mg/dL Final 06/20/2021 0.70 (L) 0.73 - 1.22 mg/dL Final Estimated Glomerular Filtration Rate Date Value Ref Range Status 04/06/2022 103 >=60 mL/min/1.73m Final Comment: Estimated Glomerular Filtration Rate (eGFR) is calculated using the 2020 CKD-EPI creatinine equation. This equation utilizes serum creatinine, sex, and age as parameters. The creatinine assay has traceable calibration to isotope dilution- mass spectrometry. Refer to KDIGO guidelines for clinical interpretation. In patients with unstable renal function, e.g. those with acute kidney injury, the eGFRmay not accurately reflect actual GFR. eGFR- Date Value Ref Range Status 06/20/2021 >60 Final P.O.C.T. RESULTS: POC done: Yes, See Lab Tab April 06, 2022 TREATMENT: N/A PERIPHERAL IV DATA: Ambulatory: A peripheral IV was started in the Left antecubital site with a Angio cath: 22 gauge. RADIOLOGY DEPARTMENT: CT; Exam(s) Completed: Abdomen/Pelvis SIGNATURE: RT Lidia(R) PATIENT NAME: Mike Monteiro DATE: April 06, 2022 TIME: 1:44 PM documented in this encounterLima City Hospital10-05-2022 Miscellaneous Notes* Telephone Encounter - Janett Qureshi LPN - 04/05/2022 9:28 AM EDT Please file lab orders. Janett Qureshi LPN * Telephone Encounter - JEREMÍAS Cheng - 04/05/2022 8:58 AM EDT When placing orders for pt please make this order (creatinine ,bmp or cmp) stats stat please , pt'sappt Is on 04/06/22 , for CT @ 8am prep 9am scan. documented in this encounterLima City Hospital04-07-2022 Miscellaneous Notes* Telephone Encounter - Janett Qureshi LPN - 10/06/2021 12:47 PM EDT Detailed message left on patient's identified VM. Patient to contact office for any questions. Janett Qureshi LPN * Telephone Encounter - Kim Pond MD - 10/06/2021 12:30 PM EDT Please notify patient that his CEA level came down. Repeat CEA level every 3 months and I will see him in 6 months. Kim Pond MD documented in this encounterLima City Hospital04-06-2022 History of Present illness Narrative* Kim Pond MD - 10/05/2021 10:27 AM EDT PATIENT NAME: Mike Monteiro. CLINIC NO: [id number]. ATTENDING PHYSICIAN: Kim Pond MD. 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 He also noted recurrent rectal bleeding on and off for the last 2 years. He underwent a diagnostic colonoscopy on 11/01/2020. Polypoid lesion in the cecumbiopsy positive for invasive poorly differentiated adenocarcinoma with signet ring features and mucinous differentiation. Subsequent CT scan of the abdomen pelvis showed no evidence of metastatic disease. His CEA level was elevated at 132.8. Otherwise, his liver function was normal with a moderate anemia. He has no chest pain, cough, shortness of breath or hemoptysis. A preoperative CT scan of chest showed Nonspecific paratracheal adenopathy and a 5.0 centimeter subcarinal lymph node present. 2nonspecific right lung nodule present in the right upper and right lower lobe. He also has a history of melanoma in situ excised locally in August, by Dr. Palmer He underwent a successful right hemicolectomy on December 02, 2020. He was told 28 lymph nodes were negative and the surgical margins. He is healing and recovering well from his surgery. Interim history: He denied chest pain, cough, hemoptysis or shortness of breath. No nausea, vomiting, jaundice or bloating. He has occasional sharp right upper quadrant pain not associated with food eating or activity. No change in bowel habits, rectal bleeding or melena.. His weight and appetite are stable. No change in skin lesion. A follow-up CT scan of his chest in August showed resolution of the mediastinal adenopathy. Unfortunately, he still smoke a pack cigarettes per day. All medications & allergies updated and reviewed by me. REVIEW OF SYSTEMS: CONSTITUTIONAL: No fevers, chills, nightsweats, unintended weight loss HEENT: Denies frequent or severe heaches, nasal congestion/sinus symptoms, problematic allergy problems. EYES: No diplopia or blurry vision. CARDIOVASCULAR: No chest pain, dyspnea, palpitations, orthopnea, PND, ankle edema. PULM: No dyspnea, unexplained cough. GI: No dysphagia/odynophagia, problematic reflux, constipation, diarrhea, changes in stool habits, hematochezia, melena. : No new urinary complaints, including dysuria, gross hematuria or pyuria. NEURO: No new balance problems, peripheral weakness/paresthesias or numbness of concern. MUSC-SKEL: No new joint pain, swelling, or erythema. PSY: No concerns regarding depression, anxiety or panic. INTEGUMENTARY: No new skin changes (rash, new or changing mole, new growth) PHYSICAL EXAMINATION: 65-year-old well-nourished well-developed gentleman no acute distress Performance status 100% BP 139/86 Pulse 64 Temp 98.4 Wt 204 lb 8 oz (92.8kg) SpO2 94% HEENT: Head is normocephalic, atraumatic. Sclerae white, conjunctivae pink. PEERL. EOMs are intact.Oropharynx is benign. LYMPHATICS: There is no palpable adenopathy in the neck, supraclavicular region, axillae, or groin. LUNGS: Lungs are clear to percussion and auscultation. HEART: Heart is normal without murmurs, gallops, or rubs. ABDOMEN: Abdominal scar healed. No erythema or tenderness or drainage. Soft and nontender without organomegaly. No masses can be palpated. EXTREMITIES: Are without edema. NEUROLOGIC: Exam is physiologic + severe hearing loss. LABS: Component Latest Ref Rng & Units 10/05/2021 WBC 3.70 - 11.00 k/uL 11.25 (H) RBC 4.20 - 6.00 m/uL 5.51 Hemoglobin 13.0 - 17.0 g/dL 16.1 Hematocrit 39.0 - 51.0 % 48.1 MCV 80.0 - 100.0 fL 87.3 MCH 26.0 - 34.0 pg 29.2 MCHC 30.5 - 36.0 g/dL 33.5 RDW-CV 11.5 - 15.0 % 14.5 Platelet Count 150 - 400 k/uL 267 MPV 9.0 - 12.7 fL 10.0 Component Latest Ref Rng & Units 10/05/2021 Protein, Total 6.3 - 8.0 g/dL 7.7 Albumin 3.9 - 4.9 g/dL 4.3 Calcium 8.5 - 10.2 mg/dL 9.3 Bilirubin, Total 0.2 - 1.3 mg/dL 0.2 Alkaline Phosphatase 38 - 113 U/L 190 (H) AST 14 - 40 U/L 14 ALT 10 - 54 U/L 14 Glucose 74 - 99 mg/dL 165 (H) BUN 9 - 24 mg/dL 16 Creatinine 0.73 - 1.22 mg/dL 0.81 Sodium 136 - 144 mmol/L 137 Potassium 3.7 - 5.1 mmol/L 3.6 (L) Chloride 97 - 105 mmol/L 105 CO2 22 - 30 mmol/L 22 Anion Gap 9 - 18 mmol/L 10 eGFR >=60 mL/min/1.73m 98 Component Latest Ref Rng & Units 02/25/2021 06/20/2021 CEA 0.0 - 2.9 ng/mL 5.2 (H) 5.9 (H) ASSESSMENT/PLAN: 66-year-old gentleman with stage II pT3, pN0, Mx cancer of the cecum. 1) Colon cancer -Status-post right hemicolectomy -YONY; elevated CEA level may be secondary to tobacco smoking Plan: -CEA level every 3 months x 2 -Repeat CBC, CMP, CEA level & OV in 6 months -Follow up colonoscopy with Dr. Terry in November 2021. 2) Mediastinal and subcarinal adenopathy in an active tobacco user & history of melanoma in- situ -initial biopsy of mediastinal lymph nodes showed no evidence of malignancy -Negative CXR Plan: -I encourage patient to stop smoking Portions of this documentation were copied and pasted from previous office visit notes in order to provide a cohesive continuity of the history. The note has been reviewed and edited and updated as necessary. Kim Pond MD Cc: Dr. Jovanny Terry documented in this encounterLima City Hospital04-05-2022 Miscellaneous Notes* Telephone Encounter - Ana María Weaver - 10/04/2021 8:02 AM EDT SCHEDULED. Ana María Weaver * Telephone Encounter - Janett Qureshi LPN - 10/03/2021 5:35 PM EDT Please schedule patient for a lab appointment 10/05/2021 @ 8:20. Patient is aware. Orders in Epic. Janett Qureshi LPN documented in this encounterLima City HospitalEvaluation + Plan note No data available for this section [facility] Evaluation note* Diagnosis Mediastinal adenopathy- Primary Enlargement of lymph nodes Malignant neoplasm of ascending colon (HCC) Malignant neoplasm of ascending colon [facility]* Diagnosis Malignant neoplasm of ascending colon (HCC)- Primary Malignant neoplasm of ascending colon [facility] Malignant neoplasm of ascending colon (HCC) Malignant neoplasm of ascending colon [facility] Diagnosis Lung nodules Other nonspecific abnormal finding of lung field [facility] Diagnosis Lung nodules- Primary Other nonspecific abnormal finding of lung field [facility]* Diagnosis Lung nodules- Primary Other nonspecific abnormal finding of lung field Tobacco abuse Tobacco use disorder [facility] Diagnosis Malignant neoplasm of ascending colon (HCC)- Primary Malignant neoplasm of ascending colon Rectal bleeding Hemorrhage of rectum and anus Lung nodule Solitary pulmonary nodule 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) Thyroid nodule Nontoxic uninodular goiter Elevated prostate specific antigen (PSA) Elevated alkaline phosphatase level Other nonspecific abnormal serum enzyme levels [facility] Diagnosis Thyroid nodule- Primary Nontoxic uninodular goiter Elevated alkaline phosphatase level Other nonspecific abnormal serum enzyme levels [facility]* Diagnosis Thyroid nodule Nontoxic uninodular goiter [facility]* Diagnosis Malignant neoplasm of ascending colon (HCC)- Primary Malignant neoplasm of ascending colon 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) Thyroid nodule Nontoxic uninodular goiter Rectal bleeding Hemorrhage of rectum and anus Lung nodule Solitary pulmonary nodule Elevated alkaline phosphatase level Other nonspecific abnormal serum enzyme levels [facility]* Diagnosis Malignant neoplasm of ascending colon (HCC)- Primary Malignant neoplasm of ascending colon Malignant melanoma of skin of trunk, except scrotum (HCC) Malignant melanoma of skin of trunk, except scrotum Lung nodule Solitary pulmonary nodule Elevated prostate specific antigen (PSA) Tobacco abuse Tobacco use disorder Thyroid nodule Nontoxic uninodular goiter Elevated alkaline phosphatase level Other nonspecific abnormal serum enzyme levels [facility]* Diagnosis Abnormal ultrasound of thyroid gland- Primary Nonspecific abnormal results of thyroid function study Antiplatelet or antithrombotic long-term use Encounter for long-term (current) use of antiplatelets/antithrombotics [facility]* Diagnosis Abnormal ultrasound of thyroid gland- Primary Nonspecific abnormal results of thyroid function study [facility]* Diagnosis Thyroid nodule- Primary Nontoxic uninodular goiter documented in this encounter [facility] Discharge instructions No data available for this section [facility] Progress note No data available for this section [facility] Reason for referral (narrative)* Diagnostic Procedure Only (Routine) - Authorized Specialty Diagnoses / Procedures Referred By Contac t Referred To Contact US IMAGING Diagnoses Thyroid nodule Procedures US THYROID/PARATHYROID US SOFT TISSUE HEAD & NECK REAL TIME IMGE DOCM Srinath Harman DO [address] [place] [address] Us Imaging Referral ID Status Reason Start Date Expiration Date Visits Requested Visits Authorized [id number] Authorized Auto-Generat ed Referral 11/11/2022 12/11/2023 1 1 [facility] for referral (narrative)* Diagnostic Procedure Only (Routine) - Closed Specialty Diagnoses / Procedures Referred By Contac t Referred To Contact US IMAGING Diagnoses Thyroid nodule Procedures US THYROID/PARATHYROID US SOFT TISSUE HEAD & NECK REAL TIME IMGE DOCSrinath Veras DO [address] [facility] [place] [address] [place] [address] Referral ID Status Reason Start Date Expiration Date V isits Requested Visits Authorized [id number] Closed Auto-Generate d Referral 11/11/2022 12/11/2023 1 1 [facility] for referral (narrative)* Diagnostic Procedure Only (Routine) - Pending Review Specialty Diagnoses / Procedures Referred By Contac t Referred To Contact US IMAGING Diagnoses Thyroid nodule Procedures US THYROID/PARATHYROID US SOFT TISSUE HEAD & NECK REAL TIME IMGE DOCHanna Rodarte MD [address] [place] [address] [place] [address] Referral ID Status Reason Start Date Expiration Date Visits Requested Visits Authorized [id number] Pending Review Auto-Generat ed Referral 06/02/2024 07/01/2024 1 1 [facility] Diagnostic Procedure Only (Routine) - Closed Specialty Diagnoses / Procedures Referred By Contronnie t Referred To Contact US IMAGING Diagnoses Thyroid nodule Procedures US THYROID/PARATHYROID US SOFT TISSUE HEAD & NECK REAL TIME IMGE DOCM Srinath Harman, DO [address] [place] [address] [place] [address] Referral ID Status Reason Start Date Expiration Date V isits Requested Visits Authorized [id number] Closed Auto-Generate d Referral 11/11/2022 12/11/2023 1 1 [facility] Summary Purpose Family History Brother (s) Status:Active Comments:4. 1 di ed of aneurysm, one of heart disease at age 64. Father Status:Active Comments: d. old age 87 . Mother Status:Active Comments: d. age 87. Sister (s) Status:Active Comments:3. In [employer]. Brother (s) Status:Active Comments:4. 1 di ed of aneurysm, one of heart disease at age 64. Father Status:Active Comments: d. old age 87 . Mother Status:Active Comments: d. age 87. Sister (s) Status:Active Comments:3. In [employer]. Brother (s) Status:Active Comments:4. 1 di ed of aneurysm, one of heart disease at age 64. Father Status:Active Comments: d. old age 87 . Mother Status:Active Comments: d. age 87. Sister (s) Status:Active Comments:3. In [employer]. Brother (s) Status:Active Comments:4. 1 di ed of aneurysm, one of heart disease at age 64. Father Status:Active Comments: d. old age 87 . Mother Status:Active Comments: d. age 87. Sister (s) Status:Active Comments:3. In [employer]. Brother (s) Status:Active Comments:4. 1 di ed of aneurysm, one of heart disease at age 64. Father Status:Active Comments: d. old age 87 . Mother Status:Active Comments: d. age 87. Sister (s) Status:Active Comments:3. In [employer]. Advance Directives Documents on File Type Date Recorded Patient Market Consultant Expl anation Advance Directive(s) 02/04/2021 4:09 PM Documents on File Type Date Recorded Patient Market Consultant Expl anation Advance Directive(s) 02/04/2021 4:09 PM Reason for Referral Specialty Diagnoses / Procedures Referred By Contac t Referred To Contact CT IMAGING Diagnoses Malignant neoplasm of ascending colon (HCC) Procedures CT ABD/PEL W IVCON CT ABD & PELVIS W/CONTRAST Kim Pond MD [address] [place] [address] Ct Imaging Referral ID Status Reason Start Date Expiration Date Visits Requested Visits Authorized [id number] Pending Review Auto-Generat ed Referral 04/06/2022 11/04/2022 1 1 Specialty Diagnoses / Procedures Referred By Contac t Referred To Contact CT IMAGING Diagnoses Malignant neoplasm of ascending colon (HCC) Procedures CT ABD/PEL W IVCON CT ABD & PELVIS W/CONTRAST Kim Pond MD [address] [facility] [place] [address] Ct Imaging Referral ID Status Reason Start Date Expiration Date V isits Requested Visits Authorized [id number] Closed Auto-Generate d Referral 03/25/2022 09/21/2022 2 2 Specialty Diagnoses / Procedures Referred By Contac t Referred To Contact CT IMAGING Diagnoses Lung nodules Procedures CT CHEST WO IVCON DIAGNOSTIC COMPUTED TOMOGRAPHY THORAX W/O PARAGRST Milena Monge MD [address] [place] [address] Ct Imaging Referral ID Status Reason Start Date Expiration Date Visits Requested Visits Authorized [id number] Pending Peer to Peer Review Auto-Genera rhett Referral Patient Cleared - Admin/Chair man/Directo r advise to proceed 08/08/2021 09/07/2022 1 1 Referral ID Status Reason Start Date Expiration Date Visits Requested Visits Authorized [id number] Pending Review Auto-Generat ed Referral 07/12/2023 1 1 Specialty Diagnoses / Procedures Referred By Contac t Referred To Contact CT IMAGING Diagnoses Malignant neoplasm of ascending colon (HCC) Lung nodule Procedures CT CHEST W IVCON DIAGNOSTIC COMPUTED TOMOGRAPHY THORAX W/CONTRAST Srinath Harman DO [address] [place] [address] Ct Imaging Referral ID Status Reason Start Date Expiration Date Visits Requested Visits Authorized [id number] Pending Review Auto-Generat ed Referral 11/08/2022 12/08/2023 1 1 Specialty Diagnoses / Procedures Referred By Contac t Referred To Contact CT IMAGING Diagnoses Malignant neoplasm of ascending colon (HCC) Lung nodule Procedures CT ABD/PEL W IVCON CT ABD & PELVIS W/CONTRAST Srinath Harman DO [address] [place] [address] Ct Imaging Referral ID Status Reason Start Date Expiration Date Visits Requested Visits Authorized [id number] Pending Review Auto-Generat ed Referral 11/08/2022 12/08/2023 1 1 Additional Source Comments (unrecognized sect ion and content) No Status Records FoundNo Status Records FoundNo Status Records FoundNo Status Records Found INFORMATION SOURCE (unrecogn ized section and content) DATE CREATED AUTHOR AUTHOR'S ORGANIZ ATION 10/27/2022 [facility] DATE CREATED AUTHOR AUTHOR'S ORGANIZ ATION 06/04/2023 [facility] DATE CREATED AUTHOR AUTHOR'S ORGANIZ ATION 07/14/2023 [facility] Source Comments (unrecognize d section and content) In the event this informatio n is protected by the Federal Confidentiality of Alcohol and Drug Abuse Patient Records regulations: The Federal rules restrict any use of the information to criminally investigate or prosecute any alcohol or drug abuse patient.[facility] HospitalIn the event this information is protected by the Federal Confidentiality of Alcohol and Drug Abuse Patient Records regulations: The Federal rules restrict any use of the information to criminally investigate or prosecute any alcohol or drug abuse patient.[facility] HospitalIn the event this information is protected by the Federal Confidentiality of Alcohol and Drug Abuse Patient Records regulations: The Federal rules restrict any use of the information to criminally investigate or prosecute any alcohol or drug abuse patient.[facility] HospitalIn the event this information is protected by the Federal Confidentiality of Alcohol and Drug Abuse Patient Records regulations: The Federal rules restrict any use of the information to criminally investigate or prosecute any alcohol or drug abuse patient.[facility] HospitalIn the event this information is protected by the Federal Confidentiality of Alcohol and Drug Abuse Patient Records regulations: The Federal rules restrict any use of the information to criminally investigate or prosecute any alcohol or drug abuse patient.[facility] HospitalIn the event this information is protected by the Federal Confidentiality of Alcohol and Drug Abuse Patient Records regulations: The Federal rules restrict any use of the information to criminally investigate or prosecute any alcohol or drug abuse patient.[facility] HospitalIn the event this information is protected by the Federal Confidentiality of Alcohol and Drug Abuse Patient Records regulations: The Federal rules restrict any use of the information to criminally investigate or prosecute any alcohol or drug abuse patient.[facility] HospitalIn the event this information is protected by the Federal Confidentiality of Alcohol and Drug Abuse Patient Records regulations: The Federal rules restrict any use of the information to criminally investigate or prosecute any alcohol or drug abuse patient.[facility] HospitalIn the event this information is protected by the Federal Confidentiality of Alcohol and Drug Abuse Patient Records regulations: The Federal rules restrict any use of the information to criminally investigate or prosecute any alcohol or drug abuse patient.[facility] HospitalIn the event this information is protected by the Federal Confidentiality of Alcohol and Drug Abuse Patient Records regulations: The Federal rules restrict any use of the information to criminally investigate or prosecute any alcohol or drug abuse patient.[facility] HospitalIn the event this information is protected by the Federal Confidentiality of Alcohol and Drug Abuse Patient Records regulations: The Federal rules restrict any use of the information to criminally investigate or prosecute any alcohol or drug abuse patient.[facility] the event this information is protected by the Federal Confidentiality of Alcohol and Drug Abuse Patient Records regulations: The Federal rules restrict any use of the information to criminally investigate or prosecute any alcohol or drug abuse patient.[facility] the event this information is protected by the Federal Confidentiality of Alcohol and Drug Abuse Patient Records regulations: The Federal rules restrict any use of the information to criminally investigate or prosecute any alcohol or drug abuse patient.[facility] the event this information is protected by the Federal Confidentiality of Alcohol and Drug Abuse Patient Records regulations: The Federal rules restrict any use of the information to criminally investigate or prosecute any alcohol or drug abuse patient.[facility] the event this information is protected by the Federal Confidentiality of Alcohol and Drug Abuse Patient Records regulations: The Federal rules restrict any use of the information to criminally investigate or prosecute any alcohol or drug abuse patient.[facility] the event this information is protected by the Federal Confidentiality of Alcohol and Drug Abuse Patient Records regulations: The Federal rules restrict any use of the information to criminally investigate or prosecute any alcohol or drug abuse patient.[facility] the event this information is protected by the Federal Confidentiality of Alcohol and Drug Abuse Patient Records regulations: The Federal rules restrict any use of the information to criminally investigate or prosecute any alcohol or drug abuse patient.[facility] the event this information is protected by the Federal Confidentiality of Alcohol and Drug Abuse Patient Records regulations: The Federal rules restrict any use of the information to criminally investigate or prosecute any alcohol or drug abuse patient.[facility] the event this information is protected by the Federal Confidentiality of Alcohol and Drug Abuse Patient Records regulations: The Federal rules restrict any use of the information to criminally investigate or prosecute any alcohol or drug abuse patient.[facility] Reason for Visit (unrecogniz ed section and content) Reason Comments Established Patient Reason Comments Results Reason Comments Lab Orders Reason Comments Radiology CT Specialty Diagnoses / Procedures Referred By Contac t Referred To Contact CT IMAGING Diagnoses Malignant neoplasm of ascending colon (HCC) Procedures CT ABD/PEL W IVCON CT ABD & PELVIS W/CONTRAST Kim Pond MD [address] [place] [address] Ct Imaging Referral ID Status Reason Start Date Expiration Date V isits Requested Visits Authorized [id number] Closed Auto-Generate d Referral 03/25/2022 09/21/2022 2 2 Reason Comments Orders Reason Comments Patient Update Reason Comments Radiology CT Specialty Diagnoses / Procedures Referred By Contac t Referred To Contact CT IMAGING Diagnoses Lung nodules Procedures CT CHEST WO IVCON DIAGNOSTIC COMPUTED TOMOGRAPHY THORAX W/O CNTRST Milena Monge MD [address] [place] [address] Ct Imaging Referral ID Status Reason Start Date Expiration Date Visits Requested Visits Authorized [id number] Pending Peer to Peer Review Auto-Genera rhett Referral Patient Cleared - Admin/Chair man/Directo r advise to proceed 08/08/2021 09/07/2022 1 1 Reason Comments Pre auth approval Ct scan Reason Comments Recheck Reason Comments Established Patient Reason Comments Follow Up Reason Comments Established Patient Reason Comments Consult FNA recommended Left Reason Comments Procedure Left FNA thyroid Reason Comments Follow Up FNA of thyroid Care Teams (unrecognized sec tion and content) Piano Assembler Relationship Specialty Start Date End Date Jovanny Terry [address] [place] [address] [phone] PCP - General Family Practice 02/25/21 Piano Assembler Relationship Specialty Start Date End Date Jovanny Terry [address] [place] [address] [id number] PCP - General Family Practice 02/25/21 Piano Assembler Relationship Specialty Start Date End Date Jovanny Terry MD [address] [place] [address] [phone] PCP - General Family Medicine 02/25/21 Piano Assembler Relationship Specialty Start Date End Date Jovanny Terry MD [address] [place], [place] [id number] PCP - General Family Medicine 02/25/21 Piano Assembler Relationship Specialty Start Date End Date Jovanny Terry MD [address] [place] [address] [id number] PCP - General Family Medicine 02/25/21 Piano Assembler Relationship Specialty Start Date End Date Jovanny Terry MD [address] [place] [id number] PCP - General Family Medicine 02/25/21 Piano Assembler Relationship Specialty Start Date End Date Jovanny Terry MD [address] [place] [id number] PCP - General Family Medicine 02/25/21 Piano Assembler Relationship Specialty Start Date End Date Jovanny Terry MD [address] [place] [id number] PCP - General Family Medicine 02/25/21 Piano Assembler Relationship Specialty Start Date End Date Jovanny Terry MD [address] [place] [id number] PCP - General Family Medicine 02/25/21 Piano Assembler Relationship Specialty Start Date End Date Jovanny Terry MD [address] [place] [id number] PCP - General Family Medicine 02/25/21 Piano Assembler Relationship Specialty Start Date End Date Jovanny Terry MD [address] [place] [address] PCP - General Family Medicine 02/25/21 Alberto Terry [address] [facility] [address] [place] [address] General Surgery 11/11/22 Haja Huber MD [address] [place] [address] [address] [place], [place] [id number] Urology 11/11/22 Misti Berman [address] [facility] [address] [place] [address] Cardiology 11/11/22 [address] [address] [place] [address] Dermatology 11/11/22 Piano Assembler Relationship Specialty Start Date End Date Jovanny Terry MD [address] [place] [address] PCP - General Family Medicine 02/25/21 Alberto Terry [address] [facility] [address] [place] [address] General Surgery 11/11/22 Haja Huber MD [address] [place] [address] Urology 11/11/22 Misti Berman MD [address] [facility] [address] [place] [address] Cardiology 11/11/22 Nacho Palmer MD [address] [place] [address] Dermatology 11/11/22 Piano Assembler Relationship Specialty Start Date End Date Jovanny Terry MD [address] [place] [address] PCP - General Family Medicine 02/25/21 Alberto Terry [address] [facility] [address] [place] [address] General Surgery 11/11/22 Haja Huber MD [address] [address] Urology 11/11/22 Misti Berman MD [address] [facility] [address] [place] [address] Cardiology 11/11/22 Nacoh Palmer MD [address] [place] [address] Dermatology 11/11/22 Piano Assembler Relationship Specialty Start Date End Date Nakia Hutson, COMMERCIAL LENDING ASSISTANT [address] [place] [address] PCP - General Family Medicine 05/18/23 Alberto Terry [address] [place] [address] General Surgery 11/11/22 Haja Huber MD [address] [place] [address] [address] [place] [address] Urology 11/11/22 [place] [address] [place] [address] Cardiology 11/11/22 Nacho Palmer MD [address] [address] Dermatology 11/11/22 Piano Assembler Relationship Specialty Start Date End Date Nakia Hutson CNP [address] [place] [address] PCP - General Family Medicine 05/18/23 Alberto Terry [address] [place] [address] General Surgery 11/11/22 Haja Huber MD [address] [facility] [address] [place], [place] [address] Urology 11/11/22 Misti Berman MD [address] [facility] [address] [place], [place] [address] Cardiology 11/11/22 Nacho Palmer MD [address] [place], [place] [address] Dermatology 11/11/22 Piano Assembler Relationship Specialty Start Date End Date Nakia Hutson CNP [address] [place], [place] [id number] PCP - General Family Medicine 05/18/23 Alberto Terry [address] [facility] [address] [place] [address] General Surgery 11/11/22 Haja Huber MD [address] [id number] Urology 11/11/22 Misti Berman MD [address] [facility] [address] [place] [address] Cardiology 11/11/22 Nacho Palmer MD [address] [place], [place] [address] Dermatology 11/11/22 FOR RECORDS PERTAINING TO PATIENTS WHO ARE OR HAVE BEEN ENROLLED IN A CHEMICAL DEPENDENCY/SUBSTANCEABUSE PROGRAM, SOME INFORMATION MAY BE OMITTED. This clinical summary was aggregated from multiple sources. Caution should be exercised in using it in the provision of clinical care. This summary normalizes information from multiple sources, and as a consequence, information in this document may materially change the coding, format and clinical context of patient data. In addition, data may be omitted in some cases. CLINICAL DECISIONS SHOULD BE BASED ON THE PRIMARY CLINICAL RECORDS. [facility]. provides no warranty or guarantee of the accuracy or completeness of information in this document.
== END | disposition home or self-care (01) ==
LOC: LABSPEC 16:57
PROVIDERS: PCP Nurse Practitioner Family; Referring Provider Urology; Visit Provider Urology
DX: R97.20 Elevated prostate specific antigen [PSA] (principal)
CPT/HCPCS: 88305; 88341; 88342; G0416

== ENCOUNTER → 2023-08-13 | Outpatient (CLI) | payer MEDICARE, SELFPAY ==
--- NOTE | 2023-08-13 14:43 | CT_ITS ---
STUDY: CT ABDOMEN AND PELVIS WITH CONTRAST REASON FOR EXAM: Male, 68 years old. Malignant neoplasm of prostate. New diagnosis of prostate cancer. History of prior right hemicolectomy for colon cancer. RADIATION DOSAGE (If Supplied By Facility): CTDIvol = ( 15.26 ) mGy, DLP = ( 1108.82 ) mGycm TECHNIQUE: Transaxial images were obtained from the dome of the diaphragm to the symphysis pubis without oral contrast. IV-100 mL IsoVue 370 was administered. Sagittal and coronal images were reconstructed. Individualized dose optimization techniques were used for this CT. COMPARISON: None. FINDINGS: There is a 5.4 mm noncalcified nodule in the lateral aspect of the right lower lobe axial axial image #1. Coronary artery calcification. Normal liver. Normal gallbladder and extrahepatic biliary system. Normal spleen. Normal pancreas. Normal bilateral adrenal glands. Small bilateral renal cysts. There is a small hiatal hernia. Normal small intestine. The patient is status post right hemicolectomy. Sigmoid diverticulosis. There is non-visualization of the appendix. There is diffuse atherosclerotic calcification of the abdominal aorta and its major visceral branches, without a demonstrated aneurysm. Normal inferior vena cava. Normal retroperitoneum. There is diffuse bladder wall thickening although the bladder is not completely distended at this time. There is enlargement of the prostate gland. The prostate measures 4.4 cm x 5.4 cm. Calcification is seen within the prostate. There is indentation of the bladder base. Small benign-appearing inguinal lymph nodes bilaterally. There are degenerative changes of the visualized lumbar spine. CT/Abdomen/Pelvis WITH Contrast IMPRESSION: Heterogeneous enlargement of the prostate with indentation at the bladder base. Diffuse bladder wall thickening although the bladder is not completely distended. Sigmoid diverticulosis. The patient is status post right hemicolectomy. Small bilateral renal cysts. 5.4 mm noncalcified nodule in the lateral aspect of the right lower lobe. A dedicated CT scan of the thorax is recommended for further evaluation. Electronically Signed: Giovany Tucker MD at 15:30 EST ,
[2023-08-13 15:15] LABS: CREATININE FINGERSTICK < 1.0 mg/dL (0.70-1.30); EGFR FINGERSTICK > 60.0000 mL/min (>60)
== END | disposition home or self-care (01) ==
PROVIDERS: PCP Nurse Practitioner Family; Referring Provider Urology; Visit Provider Urology
DX: C61 Malignant neoplasm of prostate (principal)
CPT/HCPCS: 74177; Q9967

== ENCOUNTER → 2023-08-17 | Outpatient (CLI) | payer MEDICARE, SELFPAY ==
--- NOTE | 2023-08-17 08:30 | NM_ITS ---
CLINICAL: 68-year-old male with history of primary prostate carcinoma. WHOLE BODY 99m Tc MDP RADIONUCLIDE BONE SCINTIGRAPHY COMPARISON: CT of the abdomen-pelvis report 08/13/2023 FINDINGS: Following the intravenous administration of 25.6 mCi of 99m Tc MDP, whole body bone images reveal: 1. Increased uptake is noted in the upper cervical spine posteriorly on the left and right, the lower cervical spine, first thoracic vertebra posteriorly on the left and in the midline, the bilateral elbow articulations, the fifth lumbar vertebra posteriorly on the right, both knees, the right forefoot. 2. The remaining skeletal structures are scintigraphically unremarkable with normal-appearing renal images and urinary bladder activity identified. Subtle enhanced uptake is noted in the right mid humeral diaphysis most consistent with periostitis. NM/Bone Scan Whole Body IMPRESSION: 1. The increase in tracer uptake noted in the cervical and thoracic spine, the fifth lumbar vertebra, the bilateral elbows, both knees in the right forefoot is commensurate with degenerative arthrosis. 2. There is no definitive scintigraphic evidence of diffuse skeletal metastatic disease on the current examination. Electronically Signed: Oswald Yost DO at 10:21 EST ,
== END | disposition home or self-care (01) ==
LOC: NM 08:30
PROVIDERS: PCP Nurse Practitioner Family; Referring Provider Urology; Visit Provider Urology
DX: C61 Malignant neoplasm of prostate (principal)
CPT/HCPCS: 78306; A9503

== ENCOUNTER 2023-10-10 08:16 | Day surgery (SDC) | payer MEDICARE, SELFPAY ==
[2023-10-10] VITALS (9 sets, daily range): BP systolic 120–167; BP diastolic 79–93; PULSE 72–84; RESP 16–18; TEMP 36.5–36.7; O2SAT 92–98; BMI 28.3
[2023-10-10] MEDS: Lactated Ringers 1,000 ML 15 ML IV (08:42)
--- NOTE | 2023-10-10 10:04 | PCM.HP.STD ---
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 Prostate cancer Smoker Wears glasses Home Medications aspirin 81 mg tablet,delayed release 81 mg PO DAILY 08/30/23 [History Last Taken Unknown] atorvastatin 20 mg tablet 20 mg PO DAILY 08/30/23 [History Last Taken Unknown] diltiazem HCl 180 mg capsule,extended release 24 hr 180 mg PO DAILY 08/30/23 [History Last Taken Unknown] losartan 25 mg tablet 25 mg PO DAILY 08/30/23 [History Last Taken Unknown] pantoprazole 40 mg tablet,delayed release 40 mg PO QHS 08/30/23 [History Last Taken Unknown] Allergy/AdvReac Type Severity Reaction Status Date / Time No Known Allergies Allergy Verified 10/10/23 08:21 Surgical History History of colon resection History of colonoscopy History of prostate biopsy Hx of left cataract extraction Hx of right cataract extraction Social History Smoking Status: Current every day smoker tobacco type: cigarettes alcohol intake: never substance use type: does not use caffeine: Yes Vital Signs Vital Signs Vital Signs: 10/10/23 08:38 10/10/23 08:38 Temperature 97.7 F L Temperature Source Temporal Pulse Rate 84 Respiratory Rate 17 Respiratory Pattern Normal Blood Pressure 167/93 H Blood Pressure Mean 117 Blood Pressure Source Monitor Blood Pressure Position Semi-Fowlers Blood Pressure Location Left Arm Pulse Ox 96 Oxygen Delivery Method Room Air Weight Weight: 92 kg Body Mass Index (BMI) 28.3
[2023-10-10] MEDS: Cefazolin 2 GM in 0.9% Normal Saline (100mL Bag) 100 ML IV (10:26)
--- NOTE | 2023-10-10 10:47 | OP.PCM_ITS ---
Report of Operation Date of Procedure: 10/10/23 Pre-Operative Diagnosis: Prostate cancer Post-Operative Diagnosis: The same Surgery/Procedure Performed:: Placement of spacer gel and gold markers in preparation for radiation therapy Description of Surgical Findings:: The penis and testicles were prepped and draped in usual sterile fashion, ultrasound probe was placed into the rectum and biplanar ultrasound was performed on the prostate. Identified the base mid and apex of the prostate identified the transition zone prostate. Then using a needle the first routing equipment tender was placed into the right base of the prostate, the second routing equipment tender was placed in the left base of the prostate, and the third core marker was placed in the right apex of the prostate after all 3 markers were placed the placement of the markers were confirmed by ultrasonography. The genitals and perineum were prepped and draped in usual sterile fashion. I then introduced a biplanar ultrasound probe into the rectum and performed ultrasonography and identified the Denonvilliers' fascia the prostate mid base and apex and seminal vesicles. The spacer gel mix was then prepared on the back table per manufactures instruction. Under ultrasound guidance in the midline perineum a bevel needle down we advanced through the perineum below the prostate into the space of Denonvilliers' fascia. This space which could be identified by ultrasound with a bright white layer between the prostate and the rectum. I then injected a puff of normal saline to identify the space further. After I confirmed that the needle was in the correct space in the mid prostate and the space of Denonvilliers' fascia between the rectum and the prostate. Then over the course of 15 seconds the gel matrix was injected slowly there was nice separation between the prostate and the rectum at the gel matrix was injected. The position of the gel matrix was confirmed by ultrasound. Then the injection needle was removed intact. Patient's perineum was cleaned patient was taken out of stirrups and then taken back to the PACU in good condition. Surgeon: Haja Huber Type of Anesthesia: General Drains: none Estimated Blood Loss (mL): 0 Admit VTE Documentation VTE Present on Admission: No VTE Mechan Device Prophylaxis: SCD's VTE Pharm Prophylaxis ordered?: No
--- NOTE | 2023-10-10 10:47 | PCM.DC ---
Discharge Instructions Diet Discharge Diet: No restrictions Activity Discharge Activity: Return to Normal Activity and May Not Drive (while taking narcotic pain medications.) Dressing / Incision Call your doctor if you observe: Fever of 101 or Higher Follow Up Care Please Follow Up With: Haja Huber MD When: Call [phone] for an appointment Test Results: Test results from this visit will be discussed in further detail at your follow-up appointment, if applicable. Discharge Plan Admission Primary Reason for Your Visit: Prostate cancer Attending Provider: Haja Huber Primary Care Provider: Nakia Argueta NP Discharge Orders/Prescriptions Prescriptions: New ciprofloxacin HCl [Cipro] 500 mg tablet 500 mg PO BID Qty: 14 0RF Continued aspirin 81 mg tablet,delayed release (DR/EC) 81 mg PO DAILY atorvastatin 20 mg tablet 20 mg PO DAILY diltiazem HCl 180 mg capsule,extended release 24hr 180 mg PO DAILY losartan 25 mg tablet 25 mg PO DAILY pantoprazole 40 mg tablet,delayed release (DR/EC) 40 mg PO QHS Referrals / Follow Up: Haja Huber MD [Med Staff - Active Staff] - Nakia Argueta NP, HELP DESK REPRESENTATIVE-C [Primary Care Provider] - Disposition Disposition (needs filled in before D/C Order can be placed): Home, Self Care
== END 2023-10-10 12:22 | disposition home or self-care (01) ==
LOC: SDC 08:16 → AC 08:17
PROVIDERS: PCP Nurse Practitioner Family; Referring Provider Nurse Practitioner Family; Visit Provider Urology
PROC: (CPT 55874; principal; 2023-10-10 10:20)
DX: C61 Malignant neoplasm of prostate (principal); I48.91 Unspecified atrial fibrillation; E78.00 Pure hypercholesterolemia, unspecified; K21.9 Gastro-esophageal reflux disease without esophagitis; F17.210 Nicotine dependence, cigarettes, uncomplicated; Z79.82 Long term (current) use of aspirin; Z79.899 Other long term (current) drug therapy; Z86.73 Personal history of transient ischemic attack (TIA), and cerebral infarction without residual deficits
CPT/HCPCS: 55876; 00400; J7120; J2405

== ENCOUNTER → 2023-10-16 | Outpatient (CLI) | payer MEDICARE, SELFPAY ==
--- NOTE | 2023-10-16 11:13 | MRI_ITS ---
EXAMINATION: MR Prostate WO/W Contrast COMPARISON: 06/07/2023 CLINICAL HISTORY: 68-year-old male with prostate cancer. Evaluate disease extent. TECHNIQUE: Standard prostate MR protocol was used before and after administration of 19 cc of IV Clariscan. FINDINGS: Multiparametric MR evaluation: Heterogeneous appearance of the central gland is consistent with benign prostatic hyperplasia. Lesion 1: LOCATION -redemonstration of a 1 x 0.9 x 0.8 cm moderately T2 hypointense round focal lesion in the right posterior/posterolateral peripheral zone at mid gland. It is very bright on DWI and very dark on ADC map. The lesion is grossly stable in size. T2 - 5 DWI - 5 DCE - positive Overall PI-RADS v2 score = 5 Capsular margin and neurovascular bundle: There is 3 mm of extracapsular extension posterior laterally to the right. Seminal vesicles: Not involved. Lymph nodes: No lymphadenopathy in the field of view. Bones: No suspicious lesions in the field of view. MRI/Pelvis W/WO Contrast IMPRESSION: Stable 1.5 cm PI-RADS 5 lesion in the right posterolateral PZ at mid gland with 3 mm extracapsular extension posterolaterally to the right. - No evidence of seminal vesicle invasion. - No lymphadenopathy. - No suspicious bone lesions. Electronically Signed: Brain Centeno MD at 17:41 EDT ,
[2023-10-16 11:49] LABS: CREATININE FINGERSTICK 1.5 mg/dL (0.70-1.30)
== END | disposition home or self-care (01) ==
LOC: MRI 11:07
PROVIDERS: PCP Nurse Practitioner Family; Referring Provider Student in an Organized Health Care Education/Training Program; Visit Provider Student in an Organized Health Care Education/Training Program
DX: C61 Malignant neoplasm of prostate (principal)
CPT/HCPCS: 72197; A9575

== ENCOUNTER → 2024-04-21 | Outpatient (CLI) | payer MEDICARE, SELFPAY | END | disposition home or self-care (01) | LOC: LABSPEC 16:15 | PROVIDERS: PCP Nurse Practitioner Family; Referring Provider Urology; Visit Provider Urology | DX: C61 Malignant neoplasm of prostate (principal); Z79.899 Other long term (current) drug therapy | CPT/HCPCS: 87086 ==